=== PATIENT | male | born 1970 | race Caucasian/White ===

== ENCOUNTER 2021-09-11 16:17 | Outpatient (CLI) | payer BC, SELFPAY ==
[2021-09-11 21:18] LABS: Chloride* 101 mmol/L (96-114)
[2021-09-11 21:19] LABS: Albumin* 4.7 g/dL (3.3-5.0); Potassium* 4.7 mmol/L (3.6-5.1); Sodium* 139 mmol/L (135-149)
[2021-09-11 21:21] LABS: Estimated Glomerular Filt Rate 39 ml/min
[2021-09-11 21:22] LABS: Blood Urea Nitrogen* 32 mg/dL (7-30); Carbon Dioxide* 29 mmol/L (20-32); Glucose* 99 mg/dL (60-115); Uric Acid* 8.6 mg/dL (2.2-8.4)
[2021-09-11 21:23] LABS: Calcium* 9.3 mg/dL (8.4-10.6)
[2021-09-11 21:28] LABS: Microalbumin Creatinine Ratio 70 mg/g (0-30); Microalbumin Urine 8 mg/dL
[2021-09-11 21:29] LABS: C Reactive Protein* < 0.5 mg/dL (0.5-1.0)
== END 2021-09-11 16:18 | disposition home or self-care (01) ==
PROVIDERS: PCP Internal Medicine Nephrology; Visit Provider Internal Medicine Nephrology
DX: N18.9 Chronic kidney disease, unspecified (principal)
CPT/HCPCS: 80069; 82043; 82570; 84550; 86140; 87086

== ENCOUNTER 2022-01-11 16:54 | Outpatient (CLI) | payer BC, SELFPAY ==
[2022-01-12 00:44] LABS: Creatinine Urine 99.2 mg/dL
[2022-01-12 00:47] LABS: Microalbumin Creatinine Ratio 90 mg/g (0-30); Microalbumin Urine 9 mg/dL
[2022-01-12 00:51] LABS: Albumin* 4.4 g/dL (3.3-5.0); Chloride* 104 mmol/L (96-114); Potassium* 4.4 mmol/L (3.6-5.1); Sodium* 140 mmol/L (135-149)
[2022-01-12 00:54] LABS: Blood Urea Nitrogen* 23 mg/dL (7-30); Carbon Dioxide* 29 mmol/L (20-32); Cholesterol* 189 mg/dL (90-199); Creatinine* 1.7 mg/dL (0.5-1.5); Estimated Glomerular Filt Rate 48 ml/min
[2022-01-12 00:55] LABS: Calcium* 8.9 mg/dL (8.4-10.6); HDL Cholesterol* 30 mg/dL (>=40); LDL Cholesterol Calculated 67 mg/dL (<100); Phosphorus* 3.9 mg/dL (2.5-4.5); Uric Acid* 8.3 mg/dL (2.2-8.4)
[2022-01-12 00:58] LABS: Glucose* 98 mg/dL (60-115)
[2022-01-12 01:02] LABS: Triglycerides* 459 mg/dL (40-149)
== END 2022-01-11 16:55 | disposition home or self-care (01) ==
PROVIDERS: PCP Emergency Medicine; Visit Provider Internal Medicine Nephrology
DX: E11.9 Type 2 diabetes mellitus without complications (principal); N18.32 Chronic kidney disease, stage 3b; R80.1 Persistent proteinuria, unspecified
CPT/HCPCS: 80061; 80069; 82043; 82570; 84550

== ENCOUNTER 2022-03-21 15:46 | Outpatient (CLI) | payer BC, SELFPAY ==
[2022-03-21 22:14] LABS: PSA Screen* 0.61 ng/mL (0.10-4.00)
[2022-03-24 02:49] LABS: Testosterone, Adult Male 403 ng/dL (300-890)
== END 2022-03-21 15:47 | disposition home or self-care (01) ==
PROVIDERS: PCP Emergency Medicine; Visit Provider Emergency Medicine
DX: E11.9 Type 2 diabetes mellitus without complications (principal); R79.89 Other specified abnormal findings of blood chemistry; N18.30 Chronic kidney disease, stage 3 unspecified; E78.5 Hyperlipidemia, unspecified; Z12.5 Encounter for screening for malignant neoplasm of prostate
CPT/HCPCS: 84153; 84403; 84443

== ENCOUNTER 2022-04-11 15:00 | Outpatient (CLI) | payer BC, SELFPAY | END 2022-04-11 15:01 | disposition home or self-care (01) | PROVIDERS: PCP Emergency Medicine; Visit Provider Internal Medicine Nephrology | DX: E11.9 Type 2 diabetes mellitus without complications (principal); N18.32 Chronic kidney disease, stage 3b | CPT/HCPCS: 82310; 83970 ==

== ENCOUNTER 2022-04-11 15:00 | Outpatient (CLI) | payer BC, SELFPAY | END 2022-04-11 15:01 | disposition home or self-care (01) | LOC: NFLDREF 04-19 09:21 | PROVIDERS: PCP Emergency Medicine; Referring Provider Emergency Medicine; Visit Provider Internal Medicine Nephrology | DX: E11.9 Type 2 diabetes mellitus without complications (principal); N18.32 Chronic kidney disease, stage 3b; R80.1 Persistent proteinuria, unspecified; E78.5 Hyperlipidemia, unspecified | CPT/HCPCS: 80069; 82043; 82570; 84550; 86140 ==

== ENCOUNTER 2022-10-11 15:39 | Outpatient (CLI) | payer BC, SELFPAY ==
--- OUTSIDE RECORDS SUMMARY | 2022-10-13 07:49 | XMS_ITS | Continuity of Care Document ---
Author Name Unknown Organization [facility] Address [address] [address] [place] [address] Phone Care Team Providers Care Cota Name Role Phone Rommel Walton MD Unavailable Unavailable Advance Directives Directive Yes / No Effective Date File Name No Information Encounters Encounter Description Practice Location Reason(s) For Visit Diagnoses Date Provider Providers Copied on Encounter [facility], [address] [address], [place], [place], [id number], [place] tel:[phone] [facility] Procedures No Information Isabelle Carney. [address] [facility], [facility] [address], [place], [place], [id number] , [place]. tel:[phone] Referring Provider: Maylin Mckeon MD R, [address] [place], [address]. tel:[phone] Family History Family Member Type Diagnosis Age At Onset No Information Payers Payer name Insurance type Covered republican ID Authoriza tion(s) No Information Social History Type Description Quantity Date Captured Comments Sex Male Smoking Status No Information Chief Complaint And Reason For Visit No Information Reason For Referral Reason For Referral No Information History Of Present Illness Encounter Date Complaint History Of Prese nt Illness No Information Functional Status Date Functional Assessmen t No Information Instructions Date Instruction Additional Infor mation No Information Assessments Type Assessment Date No Information Patient Care Teams Name Effective Dates (start - stop) Status Members No Information
== END 2022-10-11 15:40 | disposition home or self-care (01) ==
LOC: NFLDREF 10-13 07:48
PROVIDERS: PCP Emergency Medicine; Referring Provider Emergency Medicine; Visit Provider Internal Medicine Nephrology
DX: N18.32 Chronic kidney disease, stage 3b (principal); N02.8 Recurrent and persistent hematuria with other morphologic changes; R80.1 Persistent proteinuria, unspecified; N52.9 Male erectile dysfunction, unspecified; E11.9 Type 2 diabetes mellitus without complications; R79.89 Other specified abnormal findings of blood chemistry; Z12.5 Encounter for screening for malignant neoplasm of prostate
CPT/HCPCS: 80069; 82043; 82570; 84550

== ENCOUNTER 2022-10-24 08:17 | Outpatient (CLI) | payer BC, SELFPAY | END 2022-10-24 08:18 | disposition home or self-care (01) | PROVIDERS: PCP Emergency Medicine; Visit Provider Emergency Medicine | DX: E78.5 Hyperlipidemia, unspecified (principal); R79.89 Other specified abnormal findings of blood chemistry; E11.9 Type 2 diabetes mellitus without complications | CPT/HCPCS: 80061; 84270; 84402; 84403 ==

== ENCOUNTER 2022-11-04 14:50 | Outpatient (CLI) | payer BC, SELFPAY | END 2022-11-04 14:51 | disposition home or self-care (01) | LOC: NFLDREF 14:51 | PROVIDERS: PCP Emergency Medicine; Visit Provider Internal Medicine Nephrology | DX: R79.89 Other specified abnormal findings of blood chemistry (principal); E78.5 Hyperlipidemia, unspecified | CPT/HCPCS: 84443 ==

== ENCOUNTER 2022-11-06 15:32 | Outpatient (CLI) | payer BC, SELFPAY | END 2022-11-06 15:33 | disposition home or self-care (01) | LOC: RAD 15:34 | PROVIDERS: PCP Emergency Medicine; Visit Provider Internal Medicine Nephrology | DX: R00.0 Tachycardia, unspecified (principal) | CPT/HCPCS: 93225; 93226 ==

== ENCOUNTER 2022-11-15 16:54 | Outpatient (CLI) | payer BC, SELFPAY | END 2022-11-15 16:55 | disposition home or self-care (01) | LOC: NFLDREF 11-20 13:26 | PROVIDERS: PCP Emergency Medicine; Referring Provider Emergency Medicine; Visit Provider Emergency Medicine | DX: R79.89 Other specified abnormal findings of blood chemistry (principal) | CPT/HCPCS: 84270; 84402; 84403 ==

== ENCOUNTER 2023-01-07 12:39 | Outpatient (CLI) | payer BC, SELFPAY ==
[2023-01-07 13:55] VITALS: BP 143/69; PULSE 114
--- NOTE | 2023-01-07 17:05 | P.STN_ITS ---
Stress Test Note Date Date of test: 01/07/23 Providers Primary care provider: Tara Anguiano Stress test physician: Roger Pereira Stress Test Note Stress test ordered: Stress Echo Indication for test: Dyspnea Results discussion: Patient is very nice 52-year-old gentleman who presents for the above test after discussion the risks benefits and side effects he would like to proceed pretest EKG shows normal sinus rhythm, with a ventricular rate of 96, and a blood pressure [id number]. Rhythm is sinus, no acute ST wave changes are noted, fol lowing standard Tray protocol patient is exercised for a total time 10 minutes 2 seconds achieved a metabolic open 11.7 Mets, maximum heart rate was 180, is 126% of the maximum. During this test there is no complaints of chest pain shortness of breath, no appreciable changes suggestive of ischemia are noted. Impression: Negative electrographic portion of stress echo Follow up suggested: Await echo images, clinical correlation with these will be needed, patient left this testing facility in excellent condition,
== END 2023-01-07 12:40 | disposition home or self-care (01) ==
LOC: STRESS 12:39
PROVIDERS: PCP Emergency Medicine; Visit Provider Family Medicine
DX: R06.02 Shortness of breath (principal); R42 Dizziness and giddiness
CPT/HCPCS: 93016; 93325; 93351

== ENCOUNTER 2023-04-25 16:00 | Outpatient (CLI) | payer BC, SELFPAY | END 2023-04-25 16:01 | disposition home or self-care (01) | LOC: NFLDREF 04-30 07:35 | PROVIDERS: PCP Emergency Medicine; Referring Provider Emergency Medicine; Visit Provider Internal Medicine Nephrology | DX: E78.5 Hyperlipidemia, unspecified (principal); N18.32 Chronic kidney disease, stage 3b; R80.1 Persistent proteinuria, unspecified; Z12.5 Encounter for screening for malignant neoplasm of prostate | CPT/HCPCS: 80061; 80069; 82043; 82310; 82570; 82728; 83540; 83550; 83970; 84550; 86140; G0103 ==

== ENCOUNTER 2023-10-14 16:20 | Outpatient (CLI) | payer BC, SELFPAY ==
--- OUTSIDE RECORDS SUMMARY | 2023-10-16 07:49 | XMS_ITS | Clinical Summary ---
Author Organization [facility] Address [place], [place] [address] Care Team Providers Care Cloth Spreader Screen Printing Name Role Phone Nick Snell MD Primary Care Provider Allergies No known active allergies Medications Medication Sig Dispensed Refills Start Date End Date Status fexofenadine (HARLEEN) 180 mg tabletIndications: Seasonal allergies Take 1 tablet by mouth once daily with a meal. 90 tablet 3 07/08/2019 Active BD LUER-DWIGHT SYRINGE 1 mL syrgIndications:Lo w testosterone in male DIRECTED. 6 Each 3 02/07/2020 Active blood sugar diagnostic (BLOOD GLUCOSE TEST) stripIndications:C ontrolled type 2 diabetes mellitus without complication, without long-term current use of insulin (HC) As directed. Test 1 times per day. One touch (or for whichever meter patient has). 100 Strip 03/03/2020 Active mometasone (NASONEX) (50 mcg each actuation) nasal sprayIndications:S easonal allergies Inhale 2 Sprays to both nostrils once daily. 3 canister 06/06/2020 Active B-D 3cc Luer-Dwight Syr [id number]/2 3 mL 22 x 1 1/2 syrg USE DIRECTED 07/27/2020 Act jann dapagliflozin (FARXIGA) 10 mg tabletIndications: Controlled type 2 diabetes mellitus without complication, without long-term current use of insulin (HC) Take 1 Tablet (10 mg) by mouth once daily. 90 tablet. 1 02/23/2021 Active zolpidem (AMBIEN) 5 mg tabletIndications: Insomnia, idiopathic Take 1-2 tabs at bedtime as needed for sleep 30 Tablet 02/24/2021 Active atorvastatin (LIPITOR) 40 mg tabletIndications: Dyslipidemia Take 1 Tablet (40 mg) by mouth at bedtime. 90 Tablet 02/23/2021 Active sildenafil citrate (VIAGRA) 100 mg tabletIndications: Other male erectile dysfunction Take 1 Tablet (100 mg) by mouth once daily if needed for Erectile Dysfunction. Take 30min to 4 hours before sexual activity. Max 100mg/24hr. 30 Tablet 5 02/23/2021 Active amLODIPine (NORVASC) 5 mg tabletIndications: Hypertension, unspecified type Take 1 Tablet (5 mg) by mouth once daily. 90 Tablet 02/23/2021 Active lisinopriL (PRINIVIL; ZESTRIL) 20 mg tabletIndications: Type 2 diabetes mellitus without complication, without long-term current use of insulin (HC) Take 1 Tablet (20 mg) by mouth once daily. 90 tablet. 02/23/2021 Active testosterone cypionate (DEPO-TESTOSTERONE ) 200 mg/mL injectionIndicatio ns:Low testosterone in male INJECT 1 ML INTRAMUSCULARLY EVERY TWO WEEKS 6 mL 1 02/24/2021 Active needle, disp, 18 g ( Regular Bevel [place]) 18 gauge x 1 1/2 ndleIndications:Lo w testosterone in male As directed. 100 Each 2 03/05/2021 Active needle, disp, 22 g ([place] Disp [place] 21Yx0-6/2) 22 gauge x 1 1/2 ndleIndications:Lo w testosterone in male As directed. 100 Each 2 03/05/2021 Active Syringe, Disposable, 1 mL syrgIndications:Lo w testosterone in male As directed. 100 Each 03/05/2021 Active Active Problems Problem Noted Date Diagnosed Date Low testosterone in male 02/25/2020 IgA nephropathy 08/21/2018 Overview: 08/2018 done by kidney biopsy CKD (chronic kidney disease) stage 3, GFR 30-59 ml/min 06/15/2018 Controlled type 2 diabetes m ellitus without complication, without long-term current use of insulin 06/19/2012 Seasonal allergies 05/07/2010 Transient disorder of initiating or maintaining sleep 05/07/2010 Dyslipidemia 05/07/2010 Overview: Low HDL, high trigs (03/15 HDL 33; trig 239) Screen for colon cancer, due 2025 Overview: Rpt in 2025 Diverticulosis in the sigmoid colon. 2 mm hyperplastic polyp in the rectum Two 2 to 4 mm tubular adenoma in the transverse colon - Hemorrhoids. Resolved Problems Problem Noted Date Diagnosed Date Resolved Date Type II or unspecified type diabetes mellitus without mention of complication, uncontrolled 05/16/2011 06/19/2012 Immunizations Name Administration Dates Next Due COVID-19 vaccine (Lucky Ant NTThe Extraordinaries 30mcg/0.3mL) PF, MDV 05/12/2020,04/21/2020 Hepatitis A (Adult) 06/12/2018 Hepatitis B (Adult) 06/19/2012 Influenza A (H1N1), Inactivated 01/28/2009 Influenza, IIV3 (Age >=3 years) 12/29/2012,12/10 Influenza, IIV4 11/11/2020,,12/14/2018,2016,12/09/2014 Influenza, RIV3 (Age =>18 Years) 01/07/2014 Pneumococcal conj 13-Valent (Prevnar 13) 11/11/2020 Td (Age >=7 Years) 07/15/2002 Tdap 06/19/2012 Zoster (Shingrix-RZV, recombinant) 01/25/2021, Family History Medical History Relation Name Comments Anxiety disorder Daughter 1 Joanna Depression Daughter 1 Joanna Good Health Daughter 1 Joanna Asthma Daughter 2 Fitz viral induced; allergies Diabetes Father Hypertension Father Stomach cancer Father Heart Disease Maternal Grandfather Arthritis Maternal Grandmother Diabetes Maternal Grandmother Other Maternal Grandmother alzheim er's Diabetes Mother Heart Disease Paternal Grandfather Blood Disease Paternal Grandmother lympho ma Good Health Sister 1 Tracy Other Sister 1 Tracy migraines Good Health Sister 2 Lynsey Relation Name Status Comments Daughter 1 Joanna Alive Daughter 2 Fitz Alive Father Maternal Grandfather (Age 79) he art issues Maternal Grandmother Mother Alive Paternal Grandfather (Age early 70's) heart failure, ESRD Paternal Grandmother (Age 65) ly mphoma Sister 1 Tracy Alive Sister 2 Lynsey Alive Social History Tobacco Use Types Packs/Day Years Used Date Smoking Tobacco: Never Smokeless Tobacco: Never Tobacco Cessation:Counseling Given: Yes Alcohol Use Standard Drinks/Week Comments Yes 0 (1 standard drink = 0.6 oz pur e alcohol) rare PHQ-2 Answer Date Recorded PHQ-2 TOTAL SCORE 0 01/30/2021 Social Connections Answer Date Recorded Frequency of Communication with Friends and Fami ly Not on file 01/31/2021 Financial Resource Strain Answer Date R ecorded Difficulty of Paying Living Expenses Not on file 01/31/2021 Difficulty of Paying Living Expenses Not on file 01/31/2021 Sex and Gender Information Value Date Recorded Sex Assigned at Not on file Gender Identity Not on file Sexual Orientation Not on file Obstetrics History Last Filed Vital Signs Vital Sign Reading Time Taken Comments Blood Pressure 124/70 01/30/2021 7:13 AM FELLING MACHINE OPERATOR Pulse 84 01/30/2021 7:13 AM FELLING MACHINE OPERATOR Temperature 36.3 ??C (97.3 ??F) 09/22/2020 7:13 AM CD T Respiratory Rate 16 09/22/2020 8:45 AM CDT Oxygen Saturation 100% 09/22/2020 9:00 AM CDT Inhaled Oxygen Concentration - - Weight 84.8 kg (187 lb) 01/30/2021 7:13 AM FELLING MACHINE OPERATOR Height 182.9 cm (6') 09/22/2020 7:13 AM CDT Body Mass Index 25.36 09/22/2020 7:13 AM CDT Plan of Treatment Health Maintenance Due Date Last Done Comments HIV for age 15-65 1984 Hepatitis C screening for ag e 18-79 07/31/1987 Pneumococcal series for age 6-64 (2 of 2 - PPSV23 or PCV20) 01/06/2021 11/11/2020 BMI (ht and wt on same day) for age 18+ 03/03/2021 03/03/2020, 06/12/2018, 05/30/2017, Additional history exists Depression screening for age 12+ 01/30/2022 01/30/2021, 10/04/2019, 06/12/2018, Additional history exists Tetanus booster 06/19/2022 06/19/2012, 07/15/2002 COVID-19 vaccine series ( season) 2023 12/13/2021, 11/18/2020, 05/12/2020, Additional history exists Influenza for age 50-64 10/12/2023 11/12/19, 12/12/2019, 12/14/2018, Additional history exists Lipids for age 45-75 07/31/2025 07/31/2020, 07/19/2019, 06/12/2018, Additional history exists Colonoscopy through age 75 09/22/2025 09/22/2020 Tdap Completed 06/19/2012 Zoster (shingles) series for age 50+ Completed 01/25/2021, 11/11/2020 Procedures Procedure Name Priority Date/Time Associated Diagnosis Comments COLONOSCOPY 09/22/2020 7:57 AM CDT LIPID PANEL W REFLEX MEASURED LDL Routine 07/31/2020 3:34 PM CDT Dyslipidemia from Last 3 Months or Most Recently Relevant to Health Maintenance Results * COLONOSCOPY (09/22/2020 7:57 AM CDT) 09/22/2020 7:57 AM CDT Narrative Transcriptions Zofia Mae MD - 09/22/2020 8:28 AM CDT Endoscopy Patient Name: Trevor Holman Procedure Date: 09/22/2020 Gender: Male Date of : 1970 Admit Type: Ambulatory Procedure: Colonoscopy Proceduralist: Zofia Mae MD Referring MD: Nick Snell Indications/Pre-Op Diagnosis: Screening for malignant neoplasm in thecolon Medications: Monitored Anesthesia Care Procedure Description: The patient had risks, benefits and alternatives explained to andgave informed consent. The patient had a stable cardiopulmonary status and judged an adequate candidate for conscious sedation. The endoscope was passed through the anus and advanced to the cecum, identified by appendiceal orifice and ileocecal valve. Thecolonoscopy was performed without difficulty. The patient tolerated the procedure well. The quality of the bowel preparation was adequate and 10percent obscured. The ileocecal valve, appendiceal orifice, and rectum were photographed. Complications: No immediate complications. Estimated Blood Loss & Specimen: Estimated blood loss: none. Specimen collected: Yes and sent to Laboratory Findings: Scattered medium-mouthed diverticula were found in the sigmoidcolon. A 2 mm polyp was found in the rectum. The polyp wassemi-pedunculated. The polyp was removed with a hot snare. Resection and retrieval were complete. Two semi-sessile polyps were found in the transverse colon. Thepolyps were 2 to 4 mm in size. These polyps were removed with a hot snare. Resection and retrieval were complete. Hemorrhoids were found. The exam was otherwise without abnormality. Impressions/Post-Op Diagnosis: - Diverticulosis in the sigmoid colon. - One 2 mm polyp in the rectum, removed with a hot snare. Resectedand retrieved. - Two 2 to 4 mm polyps in the transverse colon, removed with a hot snare. Resected and retrieved. - Hemorrhoids. - The examination was otherwise normal. Recommendation: - Follow up colonoscopy recommendations will depend on the pathologyof the polyp. - A letter will be sent to the patient with pathology results andfuture screening colonoscopy recommendations. - Resume regular diet daily. - Use citrus or orange sugared Metamucil one tablespoon PO daily indefinitely. Zofia Mae MD 09/22/2020 8:28:36 AM This report has been signed electronically. Note Initiated On: 09/22/2020 7:57 AM Total Procedure Duration Time 0 hours 13 minutes 50 seconds Scope Withdrawal Time 0 hours 9 minutes 28 seconds Zofia Mae MD PROCEDURE ORD * (ABNORMAL) LIPID PANEL W REFLEX MEASURED LDL (07/31/2020 3:34 PM CDT) CHOLESTEROL,TOTAL 189 100 - 199 mg/dL 08/01/2020 2:18 PM CDT [facility] TRIGLYCERIDES 384(H) <150 mg/dL 08/01/2020 2:18 PM CDT [facility] HDL CHOLESTEROL 33(L) >40 mg/dL 2:18 PM CDT [facility] NON-HDL CHOLESTEROL 156(H) <145 mg/dl 08/01/2020 2:18 PM CDT [facility] CHOL/HDL RATIO 5.73(H) <4.50 08/01/2020 2:18 PM CDT [facility] LDL CHOLESTEROL 79 <=130 mg/dL 08/01/2020 2:18 PM CDT [facility] VLDL CHOLESTEROL 77 mg/dL 08/02/19 2:18 PM CDT [facility] PROVIDER ORDERED STATUS RANDOM 08/01/2020 2:18 PM CDT [facility] Blood BLOOD SPECIMEN / Unknown Venipuncture / Unknown 07/31/2020 3:34 PM CDT 07/31/2020 3:34 PM CDT Nick Snell MD CHEMISTRY [facility] [address] [place] [address], [facility] [address] [place] [address] from Last 3 Months or Most Recently Relevant to Health Maintenance Advance Directives * Full Code (Latest Code Status on File) Date Activated Date Inactivated Comments 09/22/2020 7:20 AM 09/22/2020 11:11 AM Question Answer Comments Code Status Discussion: Not Discussed Care Teams Cloth Spreader Screen Printing Relationship Specialty [place] [address] [place] [address] PCP - General Family Practice 07/31/20 [facility] [address] Ophthalmology 02/13/21
--- OUTSIDE RECORDS SUMMARY | 2023-10-16 07:49 | XMS_ITS ---
Author Organization [facility] Address [address] [place] [address] Care Team Providers Care Manufacturing Automation Engineer Name Role Phone Unavailable Unavailable Unavailable Surgery Details Not on file Complications Check Surgery Details section. Procedure Estimated Blood Loss Check Surgery Details section. Procedure Findings Check Surgery Details section. Procedure Specimens Taken Check Surgery Details section.
--- OUTSIDE RECORDS SUMMARY | 2023-10-16 07:49 | XMS_ITS | Clinical Summary ---
Author Organization [facility] Address [facility] [place] [address] Care Team Providers Care Tire Curer Name Role Phone [facility]- Primary Care Provider Allergies No known active allergies Social History Tobacco Use Types Packs/Day Years Used Date Smoking Tobacco: Never Assessed Adolescent Education Answer Date Record ed Getting School Help Needed Not on file 11/05 Sex and Gender Information Value Date Recorded Sex Assigned at Not on file Gender Identity Not on file Sexual Orientation Not on file Last Filed Vital Signs Vital Sign Reading Time Taken Comments Blood Pressure 130/79 10/30/2022 6:47 PM CDT Pulse 95 10/30/2022 6:47 PM CDT Temperature 37.1 ??C (98.8 ??F) 10/30/2022 4:08 PM CD T Respiratory Rate 26 10/30/2022 6:47 PM CDT Oxygen Saturation 96% 10/30/2022 6:47 PM CDT Inhaled Oxygen Concentration - - Weight - - Height - - Body Mass Index - - Plan of Treatment Health Maintenance Due Date Last Done Comments ADVANCE CARE PLANNING 1970 ANNUAL REVIEW OF HM ORDERS 1969 CT COLONOGRAPHY 1970 FIT 1970 FLEX SIG 1970 YEARLY PREVENTIVE VISIT 1970 sDNA (Cologuard) 1970 COLONOSCOPY 07/31/1979 COLORECTAL CANCER SCREENING 07/31/1979 HIV SCREENING 1984 HEPATITIS C SCREENING 07/31/1987 LIPID 2009 HEPATITIS B IMMUNIZATION (2 of 3 - 19+ 3-dose series) 07/17/2012 06/19/2012 PHQ-2 (once per calendar year) 2023 COVID-19 Vaccine ( season) 2023 12/13/2021, 11/18/2020, 05/12/2020, Additional history exists INFLUENZA VACCINE (#1) 2023 , 12/13/2021, 11/11/2020, Additional history exists GLUCOSE 10/30/2025 10/30/2022, 01/10, 01/21/2022 DTAP/TDAP/TD IMMUNIZATION (3 - Td or Tdap) 12/13/2031 12/12/2021, 06/19/2012, 07/15/2002 Pneumococcal Vaccine: Pediatrics (0 to 5 Years) and At-Risk Patients (6 to 64 Years) Aged Out 11/11/2020 No longer eligible based on patient's age to complete this topic ZOSTER IMMUNIZATION Completed 01/25/2021, HPV IMMUNIZATION Aged Out No longer e ligible based on patient's age to complete this topic MENINGITIS IMMUNIZATION Aged Out No l onger eligible based on patient's age to complete this topic RSV MONOCLONAL ANTIBODY Aged Out No l onger eligible based on patient's age to complete this topic Procedures Procedure Name Priority Date/Time Associated Diagnosis Comments BASIC METABOLIC PANEL STAT 10/30/2022 4:11 PM CDT from Last 3 Months or Most Recently Relevant to Health Maintenance Results * (ABNORMAL) Basic metabolic panel (BMP) (10/30/2022 4:11 PM CDT) Sodium 142 136 - 145 mmol/L 10/30/2022 4:42 PM CDT [facility] Potassium 4.1 3.4 - 5.3 mmol/L 10/30/2022 4:42 PM CDT [facility] Chloride 101 98 - 107 mmol/L 10/30/2022 4:42 PM CDT [facility] Carbon Dioxide (CO2) 27 22 - 29 mmol/L 10/30/2022 4:42 PM CDT [facility] Anion Gap 14 7 - 15 mmol/L 10/30/2022 4:42 PM CDT [facility] Urea Nitrogen 20.5(H) 6.0 - 20.0 mg/dL 10/30/2022 4:42 PM CDT [facility] Creatinine 1.72(H) 0.67 - 1.17 mg/dL 10/30/2022 4:42 PM CDT [facility] Calcium 9.0 8.6 - 10.0 mg/dL 10/30/2022 4:42 PM CDT [facility] Glucose 126(H) 70 - 99 mg/dL 10/30/2022 4:42 PM CDT [facility] GFR Estimate 47(L) >60 mL/min/1.7 3m2 10/30/2022 4:42 PM CDT [facility] Blood BLOOD SPECIMEN / Unknown Venipuncture / Unknown 10/30/2022 4:11 PM CDT 10/30/2022 4:19 PM CDT Efren Suarez MD LAB - BLOOD ORDERABL ES [facility] [address] [facility] (1st floor, no room number) [place] [address], [facility] [phone] from Last 3 Months or Most Recently Relevant to Health Maintenance Care Teams Tire Curer Relationship Specialty Start Date End Date [facility]- [address] [place] [address] PCP - General 01/21/22
--- OUTSIDE RECORDS SUMMARY | 2023-10-16 07:49 | XMS_ITS | Referral Summary ---
Author Organization [facility] Address [address] [place] [address] Care Team Providers Care Youth Ministry Director Name Role Phone Unavailable Primary Care Provider Unavailabl e Source Comments Patient records contain information from all sites at [facility]. For routine questions regarding patient records, call [phone] during business hours, M-F 8:00 AM - 5:00 PM Central Time. Record requests for emergency care only can be directed to [phone] at any time.[facility] Medications Medication Sig Dispensed Refills Start Date End Date Status amLODIPine (NORVASC) 5 mg tablet Take 5 mg by mouth. 02/23/2021 Activ e atorvastatin (LIPITOR) 40 mg tablet Take 40 mg by mouth. 02/23/2021 Acti ve dapagliflozin (FARXIGA) 10 mg tablet Take 10 mg by mouth. 02/23/2021 Acti ve fexofenadine (HARLEEN) 180 mg tablet Take 180 mg by mouth. 07/08/2019 Act jann lisinopriL (PRINIVIL,ZESTRI L) 20 mg tablet 07/19/2021 Active sildenafiL (VIAGRA) 100 mg tablet Take 100 mg by mouth. 02/23/2021 Act jann testosterone cypionate (DEPO-TESTOSTERO NE) 200 mg/mL injection INJECT 1 ML INTRAMUSCULARLY EVERY TWO WEEKS 02/24/2021 Active metoprolol succinate (TOPROL-XL) 50 mg 24 hr tablet Take 1 tablet (50 mg total) by mouth daily. Do not crush or chew. 90 tablet 3 11/04/2022 11/04/2023 Active Active Problems Problem Noted Date Diagnosed Date Weakness General 01/22/2022 Tachycardia 01/22/2022 Chronic Kidney Disease (CKD) , Stage 3a Glomerular Filtration Rate (GFR) 45 To 59 03/26/2021 Glomerulonephritis Immunoglobulin A (IgA Nephrop athy) 03/26/2021 Diabetes Mellitus Type 2 03/26/2021 Hyperlipidemia Mixed 03/26/2021 Hypertensive Chronic Kidney Disease With Stage 1 Through Stage 4 Chronic Kidney Disease, Or Unspecified Chronic Kidney Disease 03/26/2021 Social History Tobacco Use Types Packs/Day Years Used Date Smoking Tobacco: Never Assessed Nutrition Answer Date Recorded Nutrition: EVOO Fat Source Unknown 03/02 Nutrition: Servings of Fruits/Vegetables per Day Not on file 03/02/2021 Dental Answer Date Recorded Dental: Regular Dentist Unknown 03/02/19 Sex and Gender Information Value Date Recorded Sex Assigned at Not on file Gender Identity Not on file Sexual Orientation Not on file Last Filed Vital Signs Vital Sign Reading Time Taken Comments Blood Pressure 136/84 04/28/2023 4:45 PM CDT Pulse 102 04/28/2023 4:45 PM CDT Temperature - - Respiratory Rate - - Oxygen Saturation - - Inhaled Oxygen Concentration - - Weight 83.5 kg (184 lb 1.4 oz) 04/28/2023 4:45 P M CDT Height 184 cm (6' 0.44) 04/28/2023 4:45 PM CDT Body Mass Index 24.66 04/28/2023 4:45 PM CDT Plan of Treatment Not on file
--- OUTSIDE RECORDS SUMMARY | 2023-10-16 07:49 | XMS_ITS | Clinical Summary ---
Author Organization [facility] Address [address] [place] [address] Care Team Providers Care Pie Cutter Name Role Phone Unavailable Primary Care Provider Unavailabl e Source Comments Patient records contain information from all sites at [facility]. For routine questions regarding patient records, call [phone] during business hours, M-F 8:00 AM - 5:00 PM Central Time. Record requests for emergency care only can be directed to [phone] at any time.[facility] Medications Medication Sig Dispensed Refills Start [...] 04/28/2023 4:45 PM CDT Plan of Treatment Health Maintenance Due Date Last Done Comments CT Colonography 1970 Cologuard 1970 Diabetic Office Visit with F oot Exam 1969 Dilated Eye Exam 1970 FIT 1970 HIV Screening 1970 Hepatitis C Screening 1970 Urine Albumin 1970 Hepatitis B Vaccines (2 of 3 - 19+ 3-dose series) 07/17/2012 06/19/2012 Hemoglobin A1C 07/25/2021 01/24/2021, 06/2 02/2020, 02/21/2020, Additional history exists Depression Screening (Annual PHQ-2) 02/10/2023 COVID-19 Vaccine (2022-2 4 season) 2023 12/13/2021, 11/18/2020, 05/12/2020, Additional history exists Creatinine Level (Kidney Fun ction Test) 10/31/2023 10/30/2022, 01/21/2022, 01/24/2021, Additional history exists Potassium Level 10/31/2023 10/30/2022, 01/10, 01/24/2021, Additional history exists Sodium Level 10/31/2023 10/30/2022, 01/10, 01/24/2021, Additional history exists Influenza Vaccine (#1) 2023 , 12/13/2021, 11/11/2020, Additional history exists Office Visit for Blood Press ure Check / Re-check 04/27/2024 04/28/2023 Lipid (Cholesterol) Screening 07/31/2025, 07/19/2019, 06/12/2018 Colonoscopy 09/22/2030 09/22/2020 Colorectal Cancer Screening 09/22/2030 DTaP,Tdap,and Td Vaccines (3 - Td or Tdap) 12/13/2031 12/12/2021, 06/19/2012, 07/15/2002 Zoster Vaccines Completed 01/25/2021, 11/11/2020 Pneumococcal vaccine (0-64 years) Completed 024, 11/11/2020
--- OUTSIDE RECORDS SUMMARY | 2023-10-16 07:49 | XMS_ITS | Referral Summary ---
Author Organization [place] Address [address] [facility] [place] [address] Care Team Providers Care Heating Engineer Name Role Phone [facility]- Primary Care Provider Allergies No known active [...] Mass Index - - Plan of Treatment Not on file Procedures Procedure Name Priority Date/Time Associated Diagnosis Comments BASIC METABOLIC PANEL STAT 10/30/2022 4:11 PM CDT from Last 3 Months or Most Recently Relevant to Health Maintenance Results * (ABNORMAL) Basic metabolic panel (BMP) (10/30/2022 4:11 PM CDT) Sodium 142 136 - 145 mmol/L 10/30/2022 4:42 PM CDT [facility] Potassium 4.1 3.4 - 5.3 mmol/L 10/30/2022 4:42 PM CDT LABORATORY Chloride 101 98 - 107 mmol/L [...] Suarez MD LAB - BLOOD ORDERABL ES [facility] Acute Care Lab [address] [facility] Lab (1st floor, no room number) [place] [address], [facility] [phone] from Last 3 Months or Most Recently Relevant to Health Maintenance Care Teams Heating Engineer Relationship Specialty Start Date End Date [facility]- [address] [place], [place] [id number] [facility] - General 01/21/22
== END 2023-10-14 16:21 | disposition home or self-care (01) ==
LOC: NFLDREF 10-16 07:47
PROVIDERS: PCP Emergency Medicine; Referring Provider Emergency Medicine; Visit Provider Internal Medicine Nephrology
DX: E11.22 Type 2 diabetes mellitus with diabetic chronic kidney disease (principal); I12.9 Hypertensive chronic kidney disease with stage 1 through stage 4 chronic kidney disease, or unspecified chronic kidney disease; N18.32 Chronic kidney disease, stage 3b
CPT/HCPCS: 80069; 82043; 82570; 83970; 84450; 84460; 84550; 86140; 87086

== ENCOUNTER 2023-10-21 15:30 | Outpatient (CLI) | payer BC, SELFPAY ==
--- OUTSIDE RECORDS SUMMARY | 2023-10-25 18:05 | XMS_ITS | Clinical Summary ---
Author Organization [facility] Address [address] [place] [address] Care Team Providers Care Head Of Talent Management Name Role Phone Unavailable Primary Care Provider Unavailabl e Source Comments Patient records contain information from all sites at [facility]. For routine questions regarding patient records, call [phone] during business hours, M-F 8:00 AM - 5:00 PM Central Time. Record requests for emergency care only can be directed to [phone] at any time.[facility] Medications Medication Sig Dispensed Refills Start Date [...] Disease, Or Unspecified Chronic Kidney Disease 03/26/2021 Encounters Date Type Department Care Team Description 10/21/2023 3:00 PM CDT External Outreach Division of Nephrology and Hypertension in [place], [place] [address] [place] [address] Ernesto Guillermo Jr., D.O. Chronic Kidney Disease (CKD), Stage 3a Glomerular Filtration Rate (GFR) 45 To 59 (HCC) (Primary Dx); Glomerulonephritis Immunoglobulin A (IgA Nephropathy); Hypertensive Chronic Kidney Disease With Stage 1 Through Stage 4 Chronic Kidney Disease, Or Unspecified Chronic Kidney Disease; Diabetes Mellitus Type 2 (HCC); Hyperlipidemia Mixed from Last 3 Months Social History Tobacco Use Types Packs/Day Years [...] Sign Reading Time Taken Comments Blood Pressure 118/76 10/21/2023 3:05 PM CDT Pulse 101 10/21/2023 3:05 PM CDT Temperature - - Respiratory Rate - - Oxygen Saturation - - Inhaled Oxygen Concentration - - Weight 83.9 kg (184 lb 15.5 oz) 10/21/2023 3:05 PM CDT Height 183 cm (6' 0.05) 10/21/2023 3:05 PM CDT Body Mass Index 25.05 10/21/2023 3:05 PM CDT Plan of Treatment Health Maintenance Due Date Last Done Comments CT Colonography 1969 Cologuard 1969 Diabetic Office Visit with F oot Exam 1969 Dilated Eye Exam 1969 FIT 1969 HIV Screening 1969 Hepatitis C Screening 1969 Urine Albumin 1969 Hepatitis B Vaccines (2 of 3 - 19+ 3-dose series) 07/17/2012 06/19/2012 Hemoglobin A1C 07/25/2021 01/24/2021, 07/12, 02/21/2020, Additional history exists Depression Screening (Annual PHQ-2) 02/10/2023 COVID-19 Vaccine (5 - 2022-2 4 season) 2023 12/13/2021, 11/18/2020, 05/12/2020, Additional history exists Creatinine Level (Kidney Fun ction Test) 10/31/2023 10/30/2022, 01/21/2022, 01/24/2021, Additional history exists Potassium Level 10/31/2023 10/30/2022, 01/10, 01/24/2021, Additional history exists Sodium Level 10/31/2023 10/30/2022, 01/10, 01/24/2021, Additional history exists Influenza Vaccine (#1) 2023 , 12/13/2021, 11/11/2020, Additional history exists Office Visit for Blood Press ure Check / Re-check 10/20/2024 10/21/2023 Lipid (Cholesterol) Screening 07/31/2025, 07/19/2019, 06/12/2018 Colonoscopy 09/22/2030 09/22/2020 Colorectal Cancer Screening 09/22/2030 DTaP,Tdap,and Td Vaccines (3 - Td or Tdap) 12/13/2031 12/12/2021, 06/19/2012, 07/15/2002 Zoster Vaccines Completed 01/25/2021, 11/11/2020 Pneumococcal vaccine (0-64 years) Completed 024, 11/11/2020
--- OUTSIDE RECORDS SUMMARY | 2023-10-25 18:05 | XMS_ITS | Clinical Summary ---
Author Organization [facility] Address [place], [place] [address] Care Team Providers Care Drum Printer Name Role Phone Nick Snell MD Primary [...] canister 06/06/2020 Active B-D 3cc Luer-Dwight Syr 17Tt8-4/2 3 mL 22 x 1 1/2 syrg [...] needle, disp, 18 g ( Regular Bevel [place]) 18 gauge x 1 1/2 ndleIndications:Lo w testosterone in male As directed. 100 Each 2 03/05/2021 Active needle, disp, 22 g ([place] Disp [place] 94Qj2-8/2) 22 gauge x 1 1/2 ndleIndications:Lo w testosterone in male As directed. 100 Each 2 03/05/2021 Active Syringe, Disposable, 1 mL syrgIndications:Lo w testosterone in male As directed. 100 Each 03/05/2021 Active Active Problems Problem Noted Date Diagnosed Date Low testosterone in male 02/25/2020 IgA nephropathy 08/21/2018 Overview (08/21/2018): 08/2018 done by kidney biopsy CKD (chronic kidney disease) stage 3, GFR 30-59 ml/min 06/15/2018 Controlled type 2 diabetes m ellitus without complication, without long-term current use of insulin 06/19/2012 Seasonal allergies 05/07/2010 Transient disorder of initiating or maintaining sleep 05/07/2010 Dyslipidemia 05/07/2010 Overview (05/07/2010): Low HDL, high trigs (03/15 HDL 33; trig 239) Screen for colon cancer, due 2025 Overview (10/05/2020): Rpt in 2025 Diverticulosis in the sigmoid colon. 2 mm hyperplastic polyp in the rectum Two 2 to 4 mm tubular adenoma in the transverse colon - Hemorrhoids. Resolved Problems Problem Noted Date Diagnosed Date Resolved Date Type II or unspecified type diabetes mellitus without mention of complication, uncontrolled 05/16/2011 06/19/2012 Immunizations Name Administration Dates Next Due COVID-19 vaccine ([employer] NTOrangeSlyce 30mcg/0.3mL) PF, MDV 05/12/2020,04/21/2020 Hepatitis A (Adult) [...] Comments Blood Pressure 124/70 01/30/2021 7:13 AM CAPITAL EQUIPMENT SPECIALIST Pulse 84 01/30/2021 7:13 AM CAPITAL EQUIPMENT SPECIALIST Temperature 36.3 ??C (97.3 ??F) 09/22/2020 7:13 AM CD T Respiratory Rate 16 09/22/2020 8:45 AM CDT Oxygen Saturation 100% 09/22/2020 9:00 AM CDT Inhaled Oxygen Concentration - - Weight 84.8 kg (187 lb) 01/30/2021 7:13 AM CAPITAL EQUIPMENT SPECIALIST Height 182.9 cm (6') 09/22/2020 7:13 AM [...] - 199 mg/dL 08/01/2020 2:18 PM CDT [facility] TRIGLYCERIDES 384(H) <150 mg/dL 08/01/2020 2:18 PM CDT [facility] HDL CHOLESTEROL 33(L) >40 mg/dL 2:18 PM CDT [facility] NON-HDL CHOLESTEROL 156(H) <145 mg/dl 08/01/2020 2:18 PM CDT [facility] CHOL/HDL RATIO 5.73(H) <4.50 08/01/2020 2:18 PM CDT [facility] LDL CHOLESTEROL 79 <=130 mg/dL 08/01/2020 2:18 PM CDT [facility] VLDL CHOLESTEROL 77 mg/dL 08/02/19 2:18 PM CDT [facility] PROVIDER ORDERED STATUS RANDOM 08/01/2020 2:18 PM CDT [facility] Blood BLOOD SPECIMEN / Unknown Venipuncture / Unknown 07/31/2020 3:34 PM CDT 07/31/2020 3:34 PM CDT Nick Snell MD CHEMISTRY [facility] [address] [place] [address], [facility] [address] [place] [address] from Last 3 Months or Most Recently Relevant to Health Maintenance Advance Directives * Full Code (Latest Code Status on File) Date Activated Date Inactivated Comments 09/22/2020 7:20 AM 09/22/2020 11:11 AM Question Answer Comments Code Status Discussion: Not Discussed Care Teams Drum Printer Relationship Specialty [place] [address] [place] [address] PCP - General Family Practice 07/31/20 [place] [address] Ophthalmology 02/13/21
--- OUTSIDE RECORDS SUMMARY | 2023-10-25 18:05 | XMS_ITS | Clinical Summary ---
Author Organization [place] Address [facility] [place] [address] Care Team Providers Care Body Artist Name Role Phone [facility]- Primary Care Provider Allergies No known [...] LAB - BLOOD ORDERABL ES [facility] Acute Care Lab [address] [facility] Lab (1st floor, no room number) [place] [address], [facility] [phone] from Last 3 Months or Most Recently Relevant to Health Maintenance Care Teams Body Artist Relationship Specialty Start Date End Date [facility]- [address] [place] [address] PCP - General 01/21/22
--- OUTSIDE RECORDS SUMMARY | 2023-10-25 18:05 | XMS_ITS ---
Author Organization [facility] [place] Address [address] [place] [address] Care Team Providers Care Manager Military Name Role Phone Unavailable Unavailable Unavailable Surgery Details Not on file Complications Check Surgery Details section. Procedure Estimated Blood Loss Check Surgery Details section. Procedure Findings Check Surgery Details section. Procedure Specimens Taken Check Surgery Details section.
--- OUTSIDE RECORDS SUMMARY | 2023-10-25 18:05 | XMS_ITS | Referral Summary ---
Author Organization [facility] Address [address] [place] [address] Care Team Providers Care Lamps Tester And Inspector Name Role Phone Unavailable Primary Care Provider Unavailabl e Source Comments Patient records contain information from all sites at [facility]. For routine questions regarding patient records, call [phone] during business hours, M-F 8:00 AM - 5:00 PM Central Time. Record requests for emergency care only can be directed to [phone] at any time.[facility] Encounters Date Type Department Care Team Description 10/21/2023 3:00 PM CDT External Outreach Division of Nephrology and Hypertension in [place], [place] [address] [place] [address] Ernesto Guillermo Jr., D.O. Chronic Kidney Disease (CKD), Stage 3a Glomerular Filtration Rate (GFR) 45 To 59 (HCC) (Primary Dx); Glomerulonephritis Immunoglobulin A (IgA Nephropathy); Hypertensive Chronic Kidney Disease With Stage 1 Through Stage 4 Chronic Kidney Disease, Or Unspecified Chronic Kidney Disease; Diabetes Mellitus Type 2 (HCC); Hyperlipidemia Mixed from Last 3 Months Medications Medication Sig Dispensed Refills Start Date [...] 10/21/2023 3:05 PM CDT Plan of Treatment Not on file
--- OUTSIDE RECORDS SUMMARY | 2023-10-25 18:05 | XMS_ITS | Encounter Summary ---
Author Organization [facility] Address [address] [place] [address] Care Team Providers Care Repairer Art Objects Name Role Phone Unavailable Primary Care Provider Unavailabl e Reason for Visit * Appointment Request (Routine) - Closed Specialty Diagnoses / Procedures Referred By Leyda quinn Referred To Contact Nephrology and Hypertension Referral ID Status Reason Start Date Expiration Date Visits Re quested Visits Authorized [id number] Closed 09/19/2023 09/18/2024 1 1 Encounter Details Date Type Department Care Team (Latest Contact Info) Description 10/21/2023 3:00 PM CDT External Outreach Division of Nephrology and Hypertension in [place], [place] [address] [place] [address] Ernesto Guillermo Jr., D.O. [address] [place] [phone] Chronic Kidney Disease (CKD), Stage 3a Glomerular Filtration Rate (GFR) 45 To 59 (HCC) (Primary Dx); Glomerulonephritis Immunoglobulin A (IgA Nephropathy); Hypertensive Chronic Kidney Disease With Stage 1 Through Stage 4 Chronic Kidney Disease, Or Unspecified Chronic Kidney Disease; Diabetes Mellitus Type 2 (HCC); Hyperlipidemia Mixed Social History Tobacco Use Types Packs/Day Years [...] on file Sexual Orientation Not on file documented as of this encounter Last Filed Vital Signs Vital Sign Reading [...] Mass Index 25.05 10/21/2023 3:05 PM CDT documented in this encounter Progress Notes * Ernesto Guillermo Jr., D.O. - 10/21/2023 3:00 PM CDT Referring Provider: No primary care provider on file. SUBJECTIVE REASON FOR VISIT [facility] Follow-up regards glomerular nephritis, IgA, biopsy-proven, and CKD HISTORY OF PRESENT ILLNESS Mr. King Holman is a 53 y.o. male who presents with a history of diabetes mellitus, which is well controlled, superimposed on a background of IgA glomerular nephritis. He has had a troubling summer, with quite a bit of stress in his life primarily surrounding some family issues. His sleep is poor. He is also noticing some issues with his urine flow. He is up at least 3 times per night and notes a dramatic slowing of his stream. He has not had any dysuria urgency but at times feels his bladder is very full. I note he had a PSA performed in April which was 0.67. We will redo this, as he is currently taking testosterone supplements. Blood pressures been excellent he has had no orthostatic issues, blood pressures have been in the 1teens to 120s systolic. He has had no hypoglycemic events no neuropathic or ocular changes related to his diabetes mellitus. Regarding his IgA, he has had no hematuria no rash no abdominal discomfort and no flank discomfort. We reviewed his chemistries which are dramatically stable. His creatinine is 1.7 mg/dL, glycosylated hemoglobin level at 6.4%, and appreciate his microalbumin to creatinine ratio is stable at 120 milligrams/gram, with some hematuria. No past medical history on file. Current Outpatient Medications: amLODIPine (NORVASC) 5 mg tablet, Take 5 mg by mouth., Disp: , Rfl: atorvastatin (LIPITOR) 40 mg tablet, Take 40 mg by mouth., Disp: , Rfl: dapagliflozin (FARXIGA) 10 mg tablet, Take 10 mg by mouth., Disp: , Rfl: fexofenadine (HARLEEN) 180 mg tablet, Take 180 mg by mouth., Disp: , Rfl: lisinopriL (PRINIVIL,ZESTRIL) 20 mg tablet, , Disp: , Rfl: metoprolol succinate (TOPROL-XL) 50 mg 24 hr tablet, Take 1 tablet (50 mg total) by mouth daily. Donot crush or chew., Disp: 90 tablet, Rfl: 3 sildenafiL (VIAGRA) 100 mg tablet, Take 100 mg by mouth., Disp: , Rfl: testosterone cypionate (DEPO-TESTOSTERONE) 200 mg/mL injection, INJECT 1 ML INTRAMUSCULARLY EVERY TWO WEEKS, Disp: , Rfl: REVIEW OF SYSTEMS All other systems reviewed and are negative. OBJECTIVE BP 118/76 Pulse 101 Ht 183 cm Wt 83.9 kg BMI 25.05 kg/m?? PHYSICAL EXAMINATION General: Awake, alert, oriented. HEENT: MOHINDER, EOMI, mucous membranes moist, no oral lesions. Neck: No masses, no bruits. Lungs: Clear to auscultation. Heart: Regular rate and rhythm. No ectopy, murmurs, or rubs. Abdomen: Soft, non-tender. Extremities: No cyanosis, no clubbing, no edema. Neuro: Cranial nerves intact. Gait is normal, strength grossly normal. Skin: No suspicious lesions identified. Psychiatric: Normal affect. DIAGNOSTICS As above, hemoglobin A1c 6.4%, normal CBC creatinine 1.7 mg/dL and stable, hematuria noted as well as microalbuminuria at 120 milligrams/gram ASSESSMENT / PLAN #1 Chronic Kidney Disease (CKD), Stage 3a Glomerular Filtration Rate (GFR) 45 To 59 (HCC) His GFR has remained absolutely stable over the past several years, and I congratulated him. Going forward: 1. We should continue to maximally control blood pressure with a goal less than 120/80 which he hasachieved 2. Maximum medical therapy including SG LT 2 inhibitors have been applied both for his diabetes as well as for his CKD 3. Stay well hydrated 4. Low-sodium diet 5. Return to clinic in 6 months #2 Glomerulonephritis Immunoglobulin A (IgA Nephropathy) No gross hematuria, we are not using any disease modifying agent that is this point. Stated they are would likely support budesonide therapy, for now we will hold. #3 Hypertensive Chronic Kidney Disease With Stage 1 Through Stage 4 Chronic Kidney Disease, Or Unspecified Chronic Kidney Disease Goal blood pressures achieved we will continue with his regimen with the cornerstone being his ACEI. He has met goal correction values he is on a low-sodium diet he is sleeping reasonably well withoutevidence of nocturnal hypoxemia. #4 Diabetes Mellitus Type 2 (HCC) Excellent glycemic control, no hypoglycemic events, no secondary manifestations at this point. I congratulated him. We will continue on his SG LT 2 inhibitor and insulin. #5 Hyperlipidemia Mixed Excellent lipids, recorded these for him on a health screening form. Total time: 35 minutes Counseling Time: 30 minutes Ernesto Guillermo Jr., D.O. documented in this encounter Plan of Treatment Not on file documented as of this encounter Visit Diagnoses Diagnosis Chronic Kidney Disease (CKD), Stage 3a Glomerular Filtration Rate (GFR) 45 To 59 (HCC)- Primary Glomerulonephritis Immunoglobulin A (IgA Nephropathy) Hypertensive Chronic Kidney Disease With Stage 1 Through Stage 4 Chronic Kidney Disease, Or Unspecified Chronic Kidney Disease Diabetes Mellitus Type 2 (HCC) Hyperlipidemia Mixed documented in this encounter
--- OUTSIDE RECORDS SUMMARY | 2023-10-25 18:05 | XMS_ITS | Referral Summary ---
Author Organization [place] Address [facility] [place] [address] Care Team Providers Care Exit Booth Agent Name Role Phone [facility]- Primary Care Provider Allergies No known active [...] Suarez MD LAB - BLOOD ORDERABL ES [facility] Acute Care Lab [address] [facility] Lab (1st floor, no room number) [place] [address], [facility] [phone] from Last 3 Months or Most Recently Relevant to Health Maintenance Care Teams Exit Booth Agent Relationship Specialty Start Date End Date [facility]- [address] [place], [place] [id number] [facility] - General 01/21/22
== END 2023-10-21 15:31 | disposition home or self-care (01) ==
LOC: NFLDREF 10-25 18:03
PROVIDERS: PCP Emergency Medicine; Referring Provider Emergency Medicine; Visit Provider Internal Medicine Nephrology
DX: R79.89 Other specified abnormal findings of blood chemistry (principal); N02.8 Recurrent and persistent hematuria with other morphologic changes; N18.32 Chronic kidney disease, stage 3b; Z12.5 Encounter for screening for malignant neoplasm of prostate
CPT/HCPCS: G0103

== ENCOUNTER 2024-04-19 16:11 | Outpatient (CLI) | payer BC, SELFPAY | END 2024-04-19 16:12 | disposition home or self-care (01) | LOC: NFLDREF 04-21 07:49 | PROVIDERS: PCP Emergency Medicine; Referring Provider Emergency Medicine; Visit Provider Internal Medicine Nephrology | DX: I12.9 Hypertensive chronic kidney disease with stage 1 through stage 4 chronic kidney disease, or unspecified chronic kidney disease (principal); N18.32 Chronic kidney disease, stage 3b; N02.8 Recurrent and persistent hematuria with other morphologic changes | CPT/HCPCS: 80069; 82043; 82570; 82728; 83540; 83550; 83970; 84550; 86140; 87086 ==

== ENCOUNTER 2024-06-21 08:32 | Outpatient (CLI) | payer BC, SELFPAY | END 2024-06-21 08:33 | disposition home or self-care (01) | LOC: NFLDREF 06-29 15:54 | PROVIDERS: PCP Emergency Medicine; Referring Provider Emergency Medicine; Visit Provider Emergency Medicine | DX: E78.2 Mixed hyperlipidemia (principal); R79.89 Other specified abnormal findings of blood chemistry; Z12.5 Encounter for screening for malignant neoplasm of prostate | CPT/HCPCS: 80061; 80076; 84270; 84402; 84403; G0103 ==

== ENCOUNTER 2024-10-04 10:28 | Outpatient (CLI) | payer BC, SELFPAY | END 2024-10-04 10:29 | disposition home or self-care (01) | LOC: NFLDREF 10-07 02:32 | PROVIDERS: PCP Family Medicine; Visit Provider Internal Medicine Nephrology | DX: E11.22 Type 2 diabetes mellitus with diabetic chronic kidney disease (principal); I12.9 Hypertensive chronic kidney disease with stage 1 through stage 4 chronic kidney disease, or unspecified chronic kidney disease; N18.32 Chronic kidney disease, stage 3b; N02.8 Recurrent and persistent hematuria with other morphologic changes | CPT/HCPCS: 80061; 80069; 82043; 82570; 83970; 84443; 84450; 84460; 84550; 86140 ==

== ENCOUNTER 2024-10-19 15:20 | Emergency (ER) | payer BC, SELFPAY ==
--- OUTSIDE RECORDS SUMMARY | 2024-10-19 15:23 | XMS_ITS | Clinical Summary ---
Author Organization [place] Address [facility] [place] [address] Care Team Providers Care Magnetic Healer Name Role Phone [facility] [place]- Primary Care Provider Allergies No known active allergies Social History Tobacco Use Types Packs/Day Years Used Date Smoking Tobacco: Never Assessed Adolescent Education Answer Date Record ed Getting School Help Needed Not on file 11/05 Sex and Gender Information Value Date Recorded Sex Assigned at Not on file Legal Sex Male 4:32 AM FAMILY PRESERVATION CASEWORKER Gender Identity Not on file Sexual Orientation Not on file Last Filed Vital Signs Vital Sign Reading Time Taken Comments Blood Pressure 130/79 10/30/2022 6:47 PM CDT Pulse 95 10/30/2022 6:47 PM CDT Temperature 37.1 C (98.8 F) 10/30/2022 4:08 PM CDT Respiratory Rate 26 10/30/2022 6:47 PM CDT Oxygen Saturation 96% 10/30/2022 6:47 PM CDT Inhaled Oxygen Concentration - - Weight - - Height - - Body Mass Index - - Plan of Treatment Health Maintenance Due Date Last Done Comments ADVANCE CARE PLANNING 1970 ANNUAL REVIEW OF HM ORDERS 1969 CT COLONOGRAPHY 1969 FIT 1969 FLEX SIG 1969 sDNA (Cologuard) 1969 YEARLY PREVENTIVE VISIT 1972 COLONOSCOPY 07/31/1979 COLORECTAL CANCER SCREENING 07/31/1979 HIV SCREENING 1984 HEPATITIS C SCREENING 07/31/1987 LIPID 2009 HEPATITIS B VACCINE (2 of 3 - 19+ 3-dose series) 07/17/2012 06/19/2012 PNEUMOCOCCAL VACCINE 50+ YEARS (2 of 2 - PCV20 or PCV21) 11/11/2021 11/11/2020 PHQ-2 (once per calendar year) 2024 COVID-19 VACCINE (5 - season) 2024 12/13/2021, 11/18/2020, 05/12/2020, Additional history exists INFLUENZA VACCINE (#1) 2024 , 12/13/2021, 11/11/2020, Additional history exists DIABETES SCREENING 10/30/2025 10/30/2022, 1 03/24/2021, 01/21/2022 DTAP/TDAP/TD VACCINE (3 - Td or Tdap) 12/13/2031 12/12/2021, 06/19/2012, 07/15/2002 ZOSTER VACCINE Completed 01/25/2021, 11/11/2020 HPV VACCINE (No Doses Required) Completed MENINGITIS VACCINE Aged Out No longer eligible based on patient's age [...] 4:11 PM CDT 10/30/2022 4:19 PM CDT us Efren Suarez MD LAB - BLOOD ORDERABLES Final Res ult [facility] Acute Care Lab [address] Lab (1st floor, no room number) [place] [address], [facility] [phone] from Last 3 Months or Most Recently Relevant to Health Maintenance Insurance [employer] OUT OF STATE Care Teams Magnetic Healer Relationship Specialty Start Date End Date [facility]- [address] [place], [place] [id number] PCP - General 01/21/22
--- OUTSIDE RECORDS SUMMARY | 2024-10-19 15:23 | XMS_ITS | Clinical Summary ---
Author Organization [facility] Address [address] [place] [id number] Care Team Providers Care Policeman Name Role Phone Unavailable Primary Care Provider Unavailabl e Source Comments Patient records contain information from all sites at [facility]. For routine questions regarding patient records, call [phone] during business hours, M-F 8:00 AM - 5:00 PM Central Time. Record requests for emergency care only can be directed to [phone] at any time.[facility] Medications amLODIPine (NORVASC) 5 mg tablet Take 5 mg by mouth. 02/23/19 22 Active atorvastatin (LIPITOR) 40 mg tablet Take 40 mg by mouth. 02/23/19 22 Active dapagliflozin (FARXIGA) 10 mg tablet Take 10 mg by mouth. 02/23/19 22 Active fexofenadine (HARLEEN) 180 mg tablet Take 180 mg by mouth. 07/08/19 20 Active lisinopriL (PRINIVIL,ZEST RIL) 20 mg tablet 07/20/19 22 Active sildenafiL (VIAGRA) 100 mg tablet Take 100 mg by mouth. 02/23/19 22 Active testosterone cypionate (DEPO-TESTOSTE LESLIE) 200 mg/mL injection INJECT 1 ML INTRAMUSCULARLY EVERY TWO WEEKS 02/24/19 22 Active metoprolol succinate (TOPROL-XL) 50 mg 24 hr tablet Take 1 tablet (50 mg total) by mouth daily. Do not crush or chew. 90 tablet 3 11/05/19 23 Active Active Problems Problem Noted Date Diagnosed Date Hypogonadism Male 10/19/2024 Tachycardia 01/22/2022 Chronic Kidney Disease (CKD) , Stage 3a Glomerular Filtration Rate (GFR) 45 To 59 03/26/2021 Glomerulonephritis Immunoglobulin A (IgA Nephrop athy) 03/26/2021 Diabetes Mellitus Type 2 03/26/2021 Hyperlipidemia Mixed 03/26/2021 Hypertensive Chronic Kidney Disease With Stage 1 Through Stage 4 Chronic Kidney Disease, Or Unspecified Chronic Kidney Disease 03/26/2021 Resolved Problems Problem Noted Date Diagnosed Date Resolved Date Weakness General 01/22/2022 04/26/2024 Encounters Date Type Department Care Team Description 10/19/2024 4:30 PM CDT External Outreach Division of Nephrology and Hypertension in [place], [place] [address] [place] [address] Ernesto Guillermo Jr., D.O. Chronic Kidney Disease (CKD), Stage 3a Glomerular Filtration Rate (GFR) 45 To 59 (HCC) (Primary Dx); Glomerulonephritis Immunoglobulin A (IgA Nephropathy); Diabetes Mellitus Type 2 (HCC); Hypertensive Chronic Kidney Disease With Stage 1 Through Stage 4 Chronic Kidney Disease, Or Unspecified Chronic Kidney Disease; Hyperlipidemia Mixed; Hypogonadism Male 10/04/2024 Orders Only Division of Nephrology and Hypertension in [place], [place] [address] [place] [phone] External, Ordering Provider, MTabatha 10/04/2024 Orders Only Division of Nephrology and Hypertension in [place], [place] [address] [place] [phone] External, Ordering Provider, Trish 10/04/2024 Orders Only Division of Nephrology and Hypertension in [place], [place] [address] [place] [phone] External, Ordering ProviderTrish from Last 3 Months Social History Tobacco Use Types Packs/Day Years Used Date Smoking Tobacco: Never Assessed Sex and Gender Information Value Date Recorded Sex Assigned at Not on file Legal Sex Male 12:13 PM [employer] Gender Identity Not on file Sexual Orientation Not on file Last Filed Vital Signs Vital Sign Reading Time Taken Comments Blood Pressure 143/88 10/19/2024 2:41 PM CDT Pulse 109 10/19/2024 2:41 PM CDT Temperature - - Respiratory Rate - - Oxygen Saturation - - Inhaled Oxygen Concentration - - Weight 83.2 kg (183 lb 6.8 oz) 10/19/2024 2:41 P M CDT Height 182.2 cm (5' 11.73) 10/19/2024 2:41 PM C DT Body Mass Index 25.06 10/19/2024 2:41 PM CDT Plan of Treatment Upcoming Encounters Date Type Department Care Team (Latest Contact Info) Description 10/19/2024 4:30 PM CDT External Outreach Division of Nephrology and Hypertension in [place], [place] [address] [place] [address] Ernesto Guillermo Jr., D.O. [address] [place] [address] Chronic Kidney Disease (CKD), Stage 3a Glomerular Filtration Rate (GFR) 45 To 59 (HCC) (Primary Dx); Glomerulonephritis Immunoglobulin A (IgA Nephropathy); Diabetes Mellitus Type 2 (HCC); Hypertensive Chronic Kidney Disease With Stage 1 Through Stage 4 Chronic Kidney Disease, Or Unspecified Chronic Kidney Disease; Hyperlipidemia Mixed; Hypogonadism Male Health Maintenance Due Date Last Done Comments CT Colonography 1969 Cologuard 1969 Diabetic Eye Exam 1969 Diabetic Office Visit with Foot Exam 1969 FIT 1969 HIV Screening 1969 Hepatitis C Screening 1969 Hepatitis B Vaccines (2 of 3 - 19+ 3-dose series) 07/17/2012 06/19/2012 Depression Screening (Annual PHQ-2) 02/11/2024 COVID-19 Vaccine ( season) 2024 12/13/2021, 11/18/2020, 05/12/2020, Additional history exists Influenza Vaccine (#1) 2024 , 01/29/2023, 12/13/2021, Additional history exists Office Visit for Blood Pressure Check / Re-check 01/18/2025 10/19/2024 Hemoglobin A1C 04/06/2025 10/04/2024, 01/10, 07/31/2020, Additional history exists Creatinine Level (Kidney Function Test) 10/04/2025 10/04/2024, 04/19/2024, 10/30/2022, Additional history exists Potassium Level 10/04/2025 10/04/2024, 04/10, 10/30/2022, Additional history exists Sodium Level 10/04/2025 10/04/2024, 04/10, 10/30/2022, Additional history exists Urine Albumin 10/04/2025 10/04/2024, 04/19/2024 Lipid (Cholesterol) Screening 10/04/2029 10/04/2024, 07/31/2020, 07/19/2019, Additional history exists Colonoscopy 09/22/2030 09/22/2020 Colorectal Cancer Screening 09/22/2030 DTaP,Tdap,and Td Vaccines (3 - Td or Tdap) 12/13/2031 12/12/2021, 06/19/2012, 07/15/2002 Zoster Vaccines Completed 01/25/2021, 11/11/2020 Pneumococcal vaccine (50+ years) Completed 04/30/2023, 11/11/2020 IPV Vaccines Aged Out No longer eligi ble based on patient's age to complete this topic Procedures Procedure Name Priority Date/Time Associated Diagnosis Comments ALBUMIN, RANDOM, U Routine 10/04/2024 10 :35 AM CDT EXTP URINALYSIS WITH MICROSCOPY, URINE Routine 10/04/2024 10:35 AM CDT LIPID PANEL, S Routine 10/04/2024 10:28 AM CDT PARATHYROID HORMONE (PTH), S Routine 10/04/2024 10:28 AM CDT LIPID PANEL, S Routine 10/04/2024 10:28 AM CDT C-REACTIVE PROTEIN (CRP), S/P Routine 10/04/2024 10:28 AM CDT PHOSPHORUS (INORGANIC), S Routine 10/04/2024 10:28 AM CDT URIC ACID, S/P Routine 10/04/2024 10:28 AM CDT COMPREHENSIVE METABOLIC PANEL, S/P Routine 10/04/2024 10:28 AM CDT CBC WITH DIFFERENTIAL, B Routine 10/04/2024 10:28 AM CDT HEMOGLOBIN A1C, B Routine 10/04/2024 10: 28 AM CDT from Last 3 Months Results * (ABNORMAL) EXT Urinalysis with Microscopy, Urine (10/04/2024 10:35 AM CDT) EXT Color Yellow Yellow [facility] EXT Appearance, Urine Clear Clear [facility] EXT Glucose Qualitative, Urine 2+(A) Negative [facility] EXT Bilirubin, Urine Negative Negative [facility] EXT Ketones, POCT, Urine Negative Negative [facility] EXT Specific Perry, POCT, Urine 1.020 1.000 - 1.030 [facility] EXT Blood, Urine 2+(A) Negative [facility] EXT pH, Random, Urine 6.0 5.0 - 8.5 [facility] EXT Protein, Urine 2+(A) Negative [facility] EXT Urobilinogen, Urine 0.2 0.2 - 1.0 [facility] EXT Nitrite, Urine Negative Negative [facility] EXT Leukocyte Esterase, Urine Negative Negative [facility] EXT Red Blood Cells, U 5-10(A) 0 - [address] [facility] EXT White Blood Cells, U 0-2 0 - [address] [facility] EXT Squamous Cells None None-Few [facility] EXT Bacteria None None [facility] 10/04/2024 10:3 5 AM CDT Narrative [facility] - 10/04/2024 1:57 PM CDT Source result document attached to Order Number [id number] (HEMOGLOBIN A1C, B) dated 10/04/2024. External results verified in Extract by Tamika Christina on 10/04/2024 at 01:54 PM. us Ordering Provider External Trish LAB URINE ORDERA BLES Final Result Performing Organization Address [facility]/ZIP Co de Phone Number [facility] [address] [place] [address], [facility] [phone] * (ABNORMAL) Albumin, Random, Urine (10/04/2024 10:35 AM CDT) EXT Creatinine, Urine 120.1 mg/dL [facility] EXT Microalbumin-R andom, U 208 mg/dL [facility] EXT Albumin/Creati nine Ratio 1,730(H) 0 - 30 [facility] 10/04/2024 10:[address] [facility] [place] [facility] - 10/04/2024 3:15 PM CDT Source result document attached to Order Number [id number] (COMPREHENSIVE METABOLIC PANEL, BLOOD) dated 10/04/2024. External results verified in Extract by Tamika Christina on 10/04/2024 at 03:13 PM. us Ordering Provider External Trish LAB URINE ORDERA BLES Final Result Performing Organization Address [facility] de Phone Number [employer] [facility] [address] [place] [address], [facility] [phone] * (ABNORMAL) Lipid Panel (10/04/2024 10:28 AM CDT) Only the most recent of2 resultswithin the time period is included. EXT Triglycerides, S 219(H) 40 - 149 mg/dL [facility] EXT Cholesterol, Total, S 144 90 - 199 mg/dL [facility] EXT Calculated LDL 67 <100 mg/dL [facility] EXT Cholesterol, HDL, S 33(L) >=40 mg/dL [facility] 10/04/2024 10:[address] [facility] - 10/05/2024 7:16 AM CDT External results verified in Extract by Tamika Christina on 10/05/2024 at 07:14 AM. us Ordering Provider External Trish LAB BLOOD ADD-ON Final Result Performing Organization Address [facility] Co de Phone Number [facility] [address] [place] [address], [facility] [phone] * (ABNORMAL) CBC with Differential, Blood (10/04/2024 10:28 AM CDT) [facility] EXT Leukocytes 6.54 4.50 - 11.00 K/uL [facility] EXT RBC 5.01 4.30 - 5.90 m/uL [facility] EXT Hemoglobin 15.4 13.5 - 17.5 gm/dL [facility] EXT Hematocrit 46.2 37.0 - 53.0 % [facility] EXT MCV 92 80 - 100 fL [facility] EXT Platelet Count 139(L) 140 - 440 K/uL [facility] 10/04/2024 10:2 8 AM CDT Narrative [employer] [facility] - 10/04/2024 1:57 PM CDT Source result document attached to Order Number [id number] (HEMOGLOBIN A1C, B) dated 10/04/2024. External results verified in Extract by Tamika Christina on 10/04/2024 at 01:54 PM. us Ordering Provider External Trish LAB BLOOD ADD-ON Final Result Performing Organization Address City/[facility]/ZIP Co de Phone Number [place] [facility] [address] [place] [address], [facility] [phone] * (ABNORMAL) CRP (C-Reactive Protein) (10/04/2024 10:28 AM CDT) [facility] EXT C-Reactive Protein Quantative <0.5(L) 0.5 - 1.0 mg/dL [facility] 10/04/2024 10:2 8 AM CDT Narrative [employer] [facility] - 10/04/2024 3:15 PM CDT Source result document attached to Order Number [id number] (COMPREHENSIVE METABOLIC PANEL, BLOOD) dated 10/04/2024. External results verified in Extract by Tamika Christina on 10/04/2024 at 03:13 PM. us Ordering Provider Summer Chambers LAB BLOOD ADD-ON Final Result Performing Organization Address [facility] de Phone Number [employer] [facility] [facility] [address] [phone] * Uric Acid (10/04/2024 10:28 AM CDT) EXT Uric Acid, S 7.5 2.2 - 8.4 mg/dL [facility] 10/04/2024 10:2 8 AM CDT Narrative [employer] [facility] - 10/04/2024 3:15 PM CDT Source result document attached to Order Number [id number] (COMPREHENSIVE METABOLIC PANEL, BLOOD) dated 10/04/2024. External results verified in Extract by Tamika Christina on 10/04/2024 at 03:13 PM. us Ordering Provider Summer Chambers LAB BLOOD ADD-ON Final Result Performing Organization Address [facility] Co de Phone Number [employer] [facility] [address] [phone] * Phosphorus Inorganic (10/04/2024 10:28 AM CDT) EXT Phosphorus (Inorganic), S 2.7 2.5 - 4.5 mg/dL [facility] 10/04/2024 10:2 8 AM CDT Narrative [employer] [facility] - 10/04/2024 3:15 PM CDT Source result document attached to Order Number [id number] (COMPREHENSIVE METABOLIC PANEL, BLOOD) dated 10/04/2024. External results verified in Extract by Tamika Christina on 10/04/2024 at 03:13 PM. us Ordering Provider External M.D. LAB BLOOD ADD-ON Final Result Performing Organization Address [facility] de Phone Number [facility] [address] [place] [address] * Parathyroid Hormone (PTH) (10/04/2024 10:28 AM CDT) Parathyroid Hormone (PTH) 29.1 14.2 - 75.2 pg/mL [facility] 10/04/2024 10:2 8 AM CDT Narrative [facility] - 10/04/2024 3:15 PM CDT Source result document attached to Order Number [id number] (COMPREHENSIVE METABOLIC PANEL, BLOOD) dated 10/04/2024. External results verified in Extract by Tamika Christina on 10/04/2024 at 03:13 PM. us Ordering Provider External Trish LAB BLOOD ADD-ON Final Result Performing Organization Address [facility] Phone Number [facility] [address] [place] [address] * (ABNORMAL) Hemoglobin A1c (10/04/2024 10:28 AM CDT) EXT Hemoglobin A1c, B 6.9(H) 0 - 5.6 % [facility] 10/04/2024 10:2 8 AM CDT Narrative [facility] - 10/04/2024 1:57 PM CDT External results verified in Extract by Tamika Christina on 10/04/2024 at 01:54 PM. us Ordering Provider External M.DVance LAB BLOOD ADD-ON Final Result [facility] [address] [place], [place] [address] [phone] * (ABNORMAL) Comprehensive Metabolic Panel (10/04/2024 10:28 AM CDT) EXT Sodium 138 135 - 149 mmol/L [facility] EXT Potassium 4.6 3.6 - 5.1 mmol/L [facility] EXT Chloride 102 96 - 114 mmol/L [facility] EXT CO2 32 20 - 32 mmol/L [facility] EXT Anion Gap 4(L) 7 - 15 mEq/L [facility] EXT BUN (Blood Urea Nitrogen) 17 7 - 30 mg/dL [facility] EXT Creatinine 1.4 0.5 - 1.5 mg/dL [facility] EXT Estimated GFR (eGFR) 59 ml/min [facility] EXT Calcium, Total 9.4 8.4 - 10.6 mg/dL [facility] EXT Glucose 142(H) 60 - 115 mg/dL [facility] EXT Albumin 4.0 3.3 - 5.0 g/dL [facility] EXT AST 25 12 - 35 U/L [facility] EXT ALT 21 4 - 50 U/L [facility] 10/04/2024 10:2 8 AM CDT Narrative [facility] - 10/04/2024 3:15 PM CDT External results verified in Extract by Tamika Christina on 10/04/2024 at 03:13 PM. us Ordering Provider External M[employer] LAB BLOOD ADD-ON Final Result Performing Organization Address City/[facility]/ZIP Co de Phone Number [facility] [address] [place] [address], [facility] [phone] from Last 3 Months Insurance [facility]
--- OUTSIDE RECORDS SUMMARY | 2024-10-19 15:24 | XMS_ITS | Encounter Summary ---
Author Organization [facility] Address [address] [place] [address] Care Team Providers Care Industrial Gas Service Helper Name Role Phone Unavailable Primary Care Provider Unavailabl e Encounter Details Date Type Department Care Team ( st Contact Info) Description 10/04/2024 Orders Only Division of Nephrology and Hypertension in [place], [place] [address] [place] [phone] External, Ordering ProviderTrish Social History Tobacco Use Types Packs/Day Years Used Date Smoking Tobacco: Never Assessed Sex and Gender Information Value Date Recorded Sex Assigned at Not on file 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 [address] [place] [phone] Chronic Kidney Disease (CKD), Stage 3a Glomerular Filtration Rate (GFR) 45 To 59 (HCC) (Primary Dx); Glomerulonephritis Immunoglobulin A (IgA Nephropathy); Diabetes Mellitus Type 2 (HCC); Hypertensive Chronic Kidney Disease With Stage 1 Through Stage 4 Chronic Kidney Disease, Or Unspecified Chronic Kidney Disease; Hyperlipidemia Mixed; Hypogonadism Male documented as of this encounter Procedures Procedure Name Priority Date/Time Associated Diagnosis Comments LIPID PANEL, S Routine 10/04/2024 10:28 AM CDT documented in this encounter Results * (ABNORMAL) Lipid Panel (10/04/2024 10:28 AM CDT) EXT Triglycerides, S 219(H) 40 - 149 mg/dL [facility] EXT Cholesterol, Total, S 144 90 - 199 mg/dL [facility] EXT Calculated LDL 67 <100 mg/dL [facility] EXT Cholesterol, HDL, S 33(L) >=40 mg/dL [facility] 10/04/2024 10:2 8 AM CDT Narrative [facility] - 10/05/2024 7:16 AM CDT External results verified in Extract by Tamika Christina on 10/05/2024 at 07:14 AM. us Ordering Provider External M.DVance LAB BLOOD ADD-ON Final Result [facility] [address] [place] [address] documented in this encounter Visit Diagnoses Not on filedocumented in this encounter
--- OUTSIDE RECORDS SUMMARY | 2024-10-19 15:24 | XMS_ITS | Clinical Summary ---
Author Organization [facility] Address [address] [place] [address] Care Team Providers Care Manager Shipping Name Role Phone Nick Snell MD Primary Care Provider Allergies No known active allergies Medications fexofenadine (HARLEEN) 180 mg tabletIndication s:Seasonal allergies Take 1 tablet by mouth once daily with a meal. 90 tablet 3 07/08/19 20 Active BD LUER-DWIGHT SYRINGE 1 mL syrgIndications: Low testosterone in male DIRECTED. 6 Each 3 02/07/20 20 Active blood sugar diagnostic (BLOOD GLUCOSE TEST) stripIndications :Controlled type 2 diabetes mellitus without complication, without long-term current use of insulin (HC) As directed. Test 1 times per day. One touch (or for whichever meter patient has). 100 Strip 03/03/19 21 Active mometasone (NASONEX) (50 mcg each actuation) nasal sprayIndications :Seasonal allergies Inhale 2 Sprays to both nostrils once daily. 3 canister 06/07/19 21 Active B-D 3cc Luer-Dwight Syr 17If5-7/2 3 mL 22 x 1 1/2 syrg USE DIRECTED 07/28/19 21 Active dapagliflozin (FARXIGA) 10 mg tabletIndication s:Controlled type 2 diabetes mellitus without complication, without long-term current use of insulin (HC) Take 1 Tablet (10 mg) by mouth once daily. 90 tablet. 1 02/23/19 22 Active zolpidem (AMBIEN) 5 mg tabletIndication s:Insomnia, idiopathic Take 1-2 tabs at bedtime as needed for sleep 30 Tablet 02/24/19 22 Active atorvastatin (LIPITOR) 40 mg tabletIndication s:Dyslipidemia Take 1 Tablet (40 mg) by mouth at bedtime. 90 Tablet 02/23/19 Active sildenafil citrate (VIAGRA) 100 mg tabletIndication s:Other male erectile dysfunction Take 1 Tablet (100 mg) by mouth once daily if needed for Erectile Dysfunction. Take 30min to 4 hours before sexual activity. Max 100mg/24hr. 30 Tablet 5 02/23/19 Active amLODIPine (NORVASC) 5 mg tabletIndication s:Hypertension, unspecified type Take 1 Tablet (5 mg) by mouth once daily. 90 Tablet 02/23/19 22 Active lisinopriL (PRINIVIL; ZESTRIL) 20 mg tabletIndication s:Type 2 diabetes mellitus without complication, without long-term current use of insulin (HC) Take 1 Tablet (20 mg) by mouth once daily. 90 tablet. 02/23/19 Active testosterone cypionate (DEPO-TESTOSTERO NE) 200 mg/mL injectionIndicat ions:Low testosterone in male INJECT 1 ML INTRAMUSCULARLY EVERY TWO WEEKS 6 mL 1 02/24/19 Active needle, disp, 18 g ( Regular Bevel Kellogg) 18 gauge x 1 1/2 ndleIndications: Low testosterone in male As directed. 100 Each 2 03/05/19 Active needle, disp, 22 g ([place] Disp Kellogg 23Uo8-9/2) 22 gauge x 1 1/2 ndleIndications: Low testosterone in male As directed. 100 Each 2 03/05/19 Active Syringe, Disposable, 1 mL syrgIndications: Low testosterone in male As directed. 100 Each 03/05/19 22 Active Active Problems Problem Noted Date Diagnosed [...] mention of complication, uncontrolled 05/16/2011 06/19/2012 Immunizations Immunization Administration Dates Next Due COVID-19 vaccine ([employer] 30mcg/0.3mL) PF, MDV 05/12/2020,04/21/2020 Hepatitis A (Adult) 06/12/2018 Hepatitis B (Adult) 06/19/2012 Influenza A (H1N1), Inactivated 01/28/2009 Influenza, IIV3 (Age >=3 years) 12/29/2012,12/10 Influenza, IIV4 11/11/2020, 0,12/14/2018,2016,12/09/2014 Influenza, RIV3 (Age =>9 Years) 01/07/2014 Pneumococcal conj 13-Valent (Prevnar 13) 11/11/2020 Td (Age >=7 Years) 07/15/2002 Tdap 06/19/2012 Zoster (Shingrix-RZV, recombinant) 01/25/2021, Family History Medical History Relation Name Comments Anxiety disorder Daughter 1 Joanna Depression Daughter 1 [facility] Daughter 1 Joanna Asthma Daughter [...] at Not on file 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 Gender Identity Not on file Sexual Orientation Not on file Obstetrics History Last Filed Vital Signs Vital Sign Reading Time Taken Comments Blood Pressure 124/70 01/30/2021 7:13 AM MAGNETIC PROSPECTING OPERATOR Pulse 84 01/30/2021 7:13 AM MAGNETIC PROSPECTING OPERATOR Temperature 36.3 C (97.3 F) 09/22/2020 7:13 AM CDT Respiratory Rate 16 09/22/2020 8:45 AM CDT Oxygen Saturation 100% 09/22/2020 9:00 AM CDT Inhaled Oxygen Concentration - - Weight 84.8 kg (187 lb) 01/30/2021 7:13 AM MAGNETIC PROSPECTING OPERATOR Height 182.9 cm (6') 09/22/2020 7:13 AM CDT Body Mass Index 25.36 09/22/2020 7:13 AM CDT Plan of Treatment Health Maintenance Due Date Last Done Comments HIV for age 15-65 1984 Hepatitis C screening for ag e 18-79 07/31/1987 Hepatitis B series for 19+ ( 2 of 3 - 19+ 3-dose series) 07/17/2012 06/19/2012 Pneumococcal series for age 50+ (2 of 2 - PPSV23, PCV20, or PCV21) 01/06/2021 11/11/2020 BMI (ht and wt on same day) for age 18+ 03/03/2021 03/03/2020, 06/12/2018, 05/30/2017, Additional history exists Depression screening for age 12+ 01/30/2022 01/30/2021, 10/04/2019, 06/12/2018, Additional history exists Tetanus booster 06/19/2022 06/19/2012, 07/15/2002 COVID-19 vaccine series ( season) 2024 12/13/2021, 11/18/2020, 05/12/2020, Additional history exists Influenza Vaccine (#1) 2024 , 12/12/2019, 12/14/2018, Additional history exists Lipids for age 45-75 07/31/2025 07/31/2020, 07/19/2019, 06/12/2018, Additional history exists Colonoscopy through age 75 09/22/2025 09/22/2020 RSV vaccine for adults or (1 - 1-dose 75+ series) 2044 Zoster (shingles) series for age 50+ Completed [...] 28 seconds Zofia Mae MD PROCEDURE ORD Final Result * (ABNORMAL) LIPID PANEL W REFLEX MEASURED LDL (07/31/2020 3:34 PM CDT) CHOLESTEROL,TOTAL 189 100 - 199 mg/dL 08/01/2020 2:18 PM CDT [facility] TRIGLYCERIDES 384(H) <150 mg/dL 08/01/2020 2:18 PM CDT [facility] HDL CHOLESTEROL 33(L) >40 mg/dL 2:18 PM CDT [facility] NON-HDL CHOLESTEROL 156(H) <145 mg/dl 08/01/2020 2:18 PM CDT [facility] CHOL/HDL RATIO 5.73(H) <4.50 08/01/2020 2:18 PM CDT [facility] LDL CHOLESTEROL 79 <=130 mg/dL 08/01/2020 2:18 PM CDT [facility] VLDL CHOLESTEROL 77 mg/dL 08/02/19 2:18 PM CDT [facility] PROVIDER ORDERED STATUS RANDOM 08/01/2020 2:18 PM CDT [facility] Blood BLOOD SPECIMEN / Unknown Venipuncture / Unknown 07/31/2020 3:34 PM CDT 07/31/2020 3:34 PM CDT Nick Snell MD CHEMISTRY Final R esult [facility] [address] [place] [address], [facility] [address] [place] [address] from Last 3 Months or Most Recently Relevant to Health Maintenance Insurance [employer]UE [employer] OF NON-ID-ITS Advance Directives * Full Code (Latest Code Status on File) Date Activated Date Inactivated Comments 09/22/2020 7:20 AM 09/22/2020 11:11 AM Question Answer Comments Code Status Discussion: Not Discussed Care Teams Manager Shipping Relationship Specialty [place] [address] [place] [address] PCP - General Family Practice 07/31/20 [facility] [place] [address] Ophthalmology 02/13/21
--- OUTSIDE RECORDS SUMMARY | 2024-10-19 15:24 | XMS_ITS | Encounter Summary ---
Author Organization [facility] Address [address] [place] [address] Care Team Providers Care Studio Grip Name Role Phone Unavailable Primary Care Provider Unavailabl e Encounter Details Date Type Department Care Team ( st Contact Info) Description 10/04/2024 Orders Only Division of Nephrology and Hypertension in [place], [place] [address] [place] [phone] External, Ordering ProviderTrish Social History Tobacco Use Types Packs/Day Years Used Date Smoking Tobacco: Never Assessed Sex and Gender Information Value Date Recorded Sex Assigned at Not on file 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 [address] [place] [phone] Chronic Kidney Disease (CKD), Stage 3a Glomerular Filtration Rate (GFR) 45 To 59 (HCC) (Primary Dx); Glomerulonephritis Immunoglobulin A (IgA Nephropathy); Diabetes Mellitus Type 2 (HCC); Hypertensive Chronic Kidney Disease With Stage 1 Through Stage 4 Chronic Kidney Disease, Or Unspecified Chronic Kidney Disease; Hyperlipidemia Mixed; Hypogonadism Male documented as of this encounter Procedures Procedure Name Priority Date/Time Associated Diagnosis Comments EXTP URINALYSIS WITH MICROSCOPY, URINE Routine 10/04/2024 10:35 AM CDT CBC WITH DIFFERENTIAL, B Routine 10/04/2024 10:28 AM CDT HEMOGLOBIN A1C, B Routine 10/04/2024 10: 28 AM CDT documented in this encounter Results * (ABNORMAL) EXT Urinalysis with Microscopy, Urine (10/04/2024 10:35 AM CDT) EXT Color Yellow Yellow [facility] EXT Appearance, Urine Clear Clear [facility] Glucose Qualitative, Urine 2+(A) Negative [facility]T Bilirubin, Urine Negative Negative [facility] EXT Ketones, POCT, Urine Negative Negative [facility] EXT Specific [place], POCT, Urine 1.020 1.000 - 1.030 [facility] EXT Blood, Urine 2+(A) Negative [facility] EXT pH, Random, Urine 6.0 5.0 - 8.5 [facility] EXT Protein, Urine 2+(A) Negative [facility] EXT Urobilinogen, Urine 0.2 0.2 - 1.0 [facility] EXT Nitrite, Urine Negative Negative [facility]T Leukocyte Esterase, Urine Negative Negative [facility] EXT Red Blood Cells, U 5-10(A) 0 - 2 [facility] EXT White Blood Cells, U 0-2 0 - 5 [facility] EXT Squamous Cells None None-Few [facility] Bacteria None None [facility] 10/04/2024 10:3 5 AM CDT Narrative [facility] - 10/04/2024 1:57 PM CDT Source result document attached to Order Number [id number] (HEMOGLOBIN A1C, B) dated 10/04/2024. External results verified in Extract by Tamika Christina on 10/04/2024 at 01:54 PM. us Ordering Provider External M.D. LAB URINE ORDERA BLES Final Result Performing Organization Address [facility] Co de Phone Number [facility] [address] [place] [address], [facility] [phone] * (ABNORMAL) CBC with Differential, Blood (10/04/2024 10:28 AM CDT) EXT Leukocytes 6.54 4.50 - 11.00 K/uL [facility] EXT RBC 5.01 4.30 - 5.90 m/uL [facility] EXT Hemoglobin 15.4 13.5 - 17.5 gm/dL [facility] Hematocrit 46.2 37.0 - 53.0 % [facility] EXT MCV 92 80 - 100 fL [facility]T Platelet Count 139(L) 140 - 440 K/uL [facility] 10/04/2024 10:2 8 AM CDT Narrative [employer] [facility] - 10/04/2024 1:57 PM CDT Source result document attached to Order Number [id number] (HEMOGLOBIN A1C, B) dated 10/04/2024. External results verified in Extract by Tamika Christina on 10/04/2024 at 01:54 PM. us Ordering Provider External M.DVance LAB BLOOD ADD-ON Final Result Performing Organization Address [facility] de Phone Number [employer] [facility] LOCATION [facility] [address] [place] [address], [facility] [phone] * (ABNORMAL) Hemoglobin A1c (10/04/2024 10:28 AM CDT) EXT Hemoglobin A1c, B 6.9(H) 0 - 5.6 % [facility] 10/04/2024 10:2 8 AM CDT Narrative [facility] - 10/04/2024 1:57 PM CDT External results verified in Extract by Tamika Christina on 10/04/2024 at 01:54 PM. us Ordering Provider External MTabatha LAB BLOOD ADD-ON Final Result Performing Organization Address City/State/[facility] Co de Phone Number [facility] [address] [place] [address], [facility] [phone] documented in this encounter Visit Diagnoses Not on filedocumented in this encounter
--- OUTSIDE RECORDS SUMMARY | 2024-10-19 15:24 | XMS_ITS | Encounter Summary ---
Author Organization [facility] Address [address] [place] [address] Care Team Providers Care Local Company Intermodal Truck Driver Name Role Phone Unavailable Primary Care Provider Unavailabl e Encounter Details Date Type Department Care Team ( st Contact Info) Description 10/04/2024 Orders Only Division of Nephrology and Hypertension in [place], [place] [address] [place] [phone] External, Ordering ProviderTrish Social History Tobacco Use Types Packs/Day Years Used Date Smoking Tobacco: Never Assessed Sex and Gender Information Value Date Recorded Sex Assigned at Not on file 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 [address] [place] [phone] Chronic Kidney Disease (CKD), Stage 3a Glomerular [...] U Routine 10/04/2024 10 :35 AM CDT LIPID PANEL, S Routine 10/04/2024 10:28 AM CDT C-REACTIVE PROTEIN (CRP), S/P Routine 10/04/2024 10:28 AM CDT URIC ACID, S/P Routine 10/04/2024 10:28 AM CDT PHOSPHORUS (INORGANIC), S Routine 10/04/2024 10:28 AM CDT PARATHYROID HORMONE (PTH), S Routine 10/04/2024 10:28 AM CDT COMPREHENSIVE METABOLIC PANEL, S/P Routine 10/04/2024 10:28 AM CDT documented in this encounter Results * (ABNORMAL) Albumin, Random, Urine (10/04/2024 10:35 AM CDT) EXT Creatinine, Urine 120.1 mg/dL [facility] EXT Microalbumin-R andom, U 208 mg/dL [facility] EXT Albumin/Creati nine Ratio 1,730(H) 0 - 30 [facility] 10/04/2024 10:3 5 AM CDT Narrative [facility] - 10/04/2024 3:15 PM CDT Source result document attached to Order Number [id number] (COMPREHENSIVE METABOLIC PANEL, BLOOD) dated 10/04/2024. External results verified in Extract by Tamika Christina on 10/04/2024 at 03:13 PM. us Ordering Provider External M.DVance LAB URINE ORDERA BLES Final Result [facility] [address] [place] [address] * Parathyroid Hormone (PTH) (10/04/2024 10:28 AM CDT) Parathyroid Hormone (PTH) 29.1 14.2 - 75.2 pg/mL [facility] 10/04/2024 10:2 8 AM CDT Narrative [facility] - 10/04/2024 3:15 PM CDT Source result document attached to Order Number [id number] (COMPREHENSIVE METABOLIC PANEL, BLOOD) dated 10/04/2024. External results verified in Extract by Tamika Christina on 10/04/2024 at 03:13 PM. us Ordering Provider External Trish LAB BLOOD ADD-ON Final Result Performing Organization Address [facility]/ZIP Co de Phone Number [email or web address] [facility] [address] [place] [address] * (ABNORMAL) Lipid Panel (10/04/2024 10:28 AM CDT) Pathologist [facility] EXT Cholesterol, HDL, S 32(L) >=40 mg/dL [facility] 10/04/2024 10:2 8 AM CDT Narrative [email or web address] [facility] - 10/04/2024 3:15 PM CDT Source result document attached to Order Number [id number] (COMPREHENSIVE METABOLIC PANEL, BLOOD) dated 10/04/2024. External results verified in Extract by Tamika Christina on 10/04/2024 at 03:13 PM. us Ordering Provider External Trish LAB BLOOD ADD-ON Final Result [email or web address] [facility] [address] [phone] * (ABNORMAL) CRP (C-Reactive Protein) (10/04/2024 10:28 AM CDT) EXT C-Reactive Protein Quantative <0.5(L) 0.5 - 1.0 mg/dL [facility] 10/04/2024 10:2 8 AM CDT Narrative [facility] - 10/04/2024 3:15 PM CDT Source result document attached to Order Number [id number] (COMPREHENSIVE METABOLIC PANEL, BLOOD) dated 10/04/2024. External results verified in Extract by Tamika Christina on 10/04/2024 at 03:13 PM. us Ordering Provider Summer Chambers LAB BLOOD ADD-ON Final Result Performing Organization Address [facility] de Phone Number [facility] [address] [phone] * Phosphorus Inorganic (10/04/2024 10:28 AM CDT) EXT Phosphorus (Inorganic), S 2.7 2.5 - 4.5 mg/dL [facility] 10/04/2024 10:2 8 AM CDT Narrative [facility] - 10/04/2024 3:15 PM CDT Source result document attached to Order Number [id number] (COMPREHENSIVE METABOLIC PANEL, BLOOD) dated 10/04/2024. External results verified in Extract by Tamika Christina on 10/04/2024 at 03:13 PM. us Ordering Provider Summer Chambers LAB BLOOD ADD-ON Final Result Performing Organization Address [facility] de Phone Number [facility] [address] [phone] * Uric Acid (10/04/2024 10:28 AM CDT) EXT Uric Acid, S 7.5 2.2 - 8.4 mg/dL [facility] 10/04/2024 10:2 8 AM CDT Narrative [facility] - 10/04/2024 3:15 PM CDT Source result document attached to Order Number [id number] (COMPREHENSIVE METABOLIC PANEL, BLOOD) dated 10/04/2024. External results verified in Extract by Tamika Christina on 10/04/2024 at 03:13 PM. us Ordering Provider External Trish LAB BLOOD ADD-ON Final Result Performing Organization Address City/[facility]/ZIP Co de Phone Number [facility] [address] [place], [place] [address] [phone] * (ABNORMAL) Comprehensive Metabolic Panel (10/04/2024 10:28 AM CDT) EXT Sodium 138 135 - 149 mmol/L [facility] EXT Potassium 4.6 3.6 - 5.1 mmol/L [facility] EXT Chloride 102 96 - 114 mmol/L [facility] EXT CO2 32 20 - 32 mmol/L [facility] EXT Anion Gap 4(L) 7 - 15 mEq/L [facility] EXT BUN (Blood Urea Nitrogen) 17 7 - 30 mg/dL [facility] EXT Creatinine 1.4 0.5 - 1.5 mg/dL [facility] EXT Estimated GFR (eGFR) 59 ml/min [facility] EXT Calcium, Total 9.4 8.4 - 10.6 mg/dL [facility] EXT Glucose 142(H) 60 - 115 mg/dL [facility] EXT Albumin 4.0 3.3 - 5.0 g/dL [facility] EXT AST 25 12 - 35 U/L [facility] EXT ALT 21 4 - 50 U/L [facility] 10/04/2024 10:2 8 AM CDT Narrative [facility] - 10/04/2024 3:15 PM CDT External results verified in Extract by Tamika Christina on 10/04/2024 at 03:13 PM. us Ordering Provider External Trish LAB BLOOD ADD-ON Final Result Performing Organization Address [facility]/ZIP Co de Phone Number [facility] [address] [place], [place] [address] [phone] documented in this encounter Visit Diagnoses Not on filedocumented in this encounter
[2024-10-19 15:28] VITALS: BP 137/72; PULSE 103; RESP 16; TEMP 37.3; O2SAT 97; BMI 25.2
--- NOTE | 2024-10-19 15:37 | CRLHL7_ITS ---
For Patients: As a result of the Century Cures Act, medical imaging exams and procedure reports are released immediately into your electronic medical record. You may view this report before your referring provider. If you have questions, please contact your health care provider. Indication: CP. SOB. Technique: CT angiogram of the chest was performed for evaluation of pulmonary embolism. 95 mL of Isovue 370 intravenous contrast was administered. Comparison: None. Findings: CARDIOVASCULAR: Diagnostic quality: Contrast opacification of the pulmonary arterial circulation is adequate for assessment of pulmonary embolism. Study is not significantly limited by respiratory motion artifact. Pulmonary arteries: No filling defects to suggest pulmonary embolism. Not enlarged. Heart: No interventricular septal deviation. Normal in size. No significant coronary artery calcification. No significant valvular calcification. Pericardium: No pericardial effusion. Thoracic aorta: No significant abnormality. Normal cervical branching. REMAINING CHEST: Medical devices: None. Thyroid: Normal. Lymph nodes: No supraclavicular, axillary, mediastinal, or hilar lymphadenopathy. Other mediastinal structures: No significant abnormality. Lung parenchyma: No significant abnormality. Airways: Minimal bronchial wall thickening. Pleura: No significant abnormality. Chest wall: Mild bilateral gynecomastia. Upper abdomen: No significant abnormality. Musculoskeletal: Mild degenerative changes of the visualized spine. Impression: 1. No acute pulmonary embolism. 2. Minimal bronchial wall thickening may represent airways infection or inflammation. Please note that all CT scans at this facility use dose modulation, iterative reconstruction, and/or weight-based dosing when appropriate to reduce radiation dose to as low as reasonably achievable. Dictated by Leonardo Calles MD @ 10/19/2024 4:40:14 PM (Electronically Signed)
--- NOTE | 2024-10-19 15:40 | ED.GENADULT ---
HPI - General Adult General Date Seen: 10/19/24 Chief complaint: Shortness of Breath/Dyspnea Stated complaint: SOB, rule out PE Time Seen by Provider: 10/19/24 15:36 History of Present Illness HPI narrative: This is a 54-year-old male who is referred to the ER today from the clinic (was seeing Dr. Guillermo, nephrology) for evaluation of left chest pain and difficulty breathing. He has a past history of IgA nephropathy with mild renal insufficiency but so far an is not close to getting kidney transplant. He also has history of dyslipidemia on atorvastatin. His utilization reviewer sent him here for evaluation and to get a CT scan- Concern is for possible PE. The patient has been experiencing some pain in his midthoracic back that mostly hurts when he breathes in and out. It has been there for about a month. It is not getting better or worse. No other associated symptoms. No anterior chest pain. No abdominal pain. No flank pain. He he has not had a fever. No cough. No known injury. No rash. No bruising. He went to the clinic today as part of his regular 6 month checkup for his IgA nephropathy and when he mentioned his symptoms to his utilization reviewer, his utilization reviewer was concern about possible PE so sent him here. Concern was based partly on the nephrologists personal history of that diagnosis. The patient does not have any other risk factors. No recent travel or immobilization. No recent surgeries save for a kidney biopsy. He has no history of DVT or PE. He has not had any symptoms of DVT or any leg swelling lately. No hemoptysis. Related Data Home Medications ?Medication ?Instructions ?Recorded ?Confirmed aspirin 81 mg tablet,delayed 81 mg PO QDAY 09/30/24 10/19/24 release (Adult Low Dose Aspirin) Previous Rx's ?Medication ?Instructions ?Recorded syringe (disposable) 1 mL (BD #100 ea 06/24/22 Luer-Dwight Syringe) mometasone 50 mcg/actuation nasal 2 spray intranasal QDAY PRN nasal 04/30/23 spray congestion #17 grams triamcinolone acetonide 0.1 % 1 applic topical BID PRN eczema 04/30/23 topical cream #30 grams needle (disp) 18 G 18 gauge x 1 #100 ea 10/28/2302/11 (BD Regular Bevel Stringer) atorvastatin 40 mg tablet 40 mg PO QPM #90 tabs 04/28/24 dapagliflozin propanediol 10 mg 10 mg PO QDAY #90 tabs 04/28/24 tablet (Farxiga) lisinopril 20 mg tablet 20 mg PO QDAY #90 tabs 04/28/24 sildenafil 100 mg tablet 100 mg PO QDAY PRN sexual activity 04/28/24 #18 tabs testosterone cypionate 200 mg/mL 200 mg IM Q2W #6 mL 07/01/24 intramuscular oil (Depo-Testosterone) cyclobenzaprine 10 mg tablet 10 mg PO .hs PRN muscle spasm #30 09/30/24 tabs needle (disp) 22 G 22 gauge x 1 #100 ea 10/07/24 1/2 Allergies Allergy/AdvReac Type Severity Reaction Status Date / Time No Known Allergies Allergy Verified 10/19/24 14:31 [facility] Medical History (Updated 10/19/24 @ 17:01 by Austin Rain MD) Viral wart on finger ?B07.9 - Viral wart, unspecified (ICD-10) Hypertension ?I10 - Essential (primary) hypertension (ICD-10) Atopic dermatitis ?L20.9 - Atopic dermatitis, unspecified (ICD-10) Tachycardia ?R00.0 - Tachycardia, unspecified (ICD-10) Tubular adenoma of colon ?D12.6 - Benign neoplasm of colon, unspecified (ICD-10) Erectile dysfunction ?N52.9 - Male erectile dysfunction, unspecified (ICD-10) Hyperlipidemia ?E78.5 - Hyperlipidemia, unspecified (ICD-10) Screening for prostate cancer ?Z12.5 - Encounter for screening for malignant neoplasm of prostate (ICD-10) History of insomnia ?Z87.898 - Personal history of other specified conditions (ICD-10) History of hypertension ?Z86.79 - Personal history of other diseases of the circulatory system (ICD-10) History of hyperlipidemia ?Z86.39 - Personal history of other endocrine, nutritional and metabolic disease (ICD-10) History of fatigue ?Z87.898 - Personal history of other specified conditions (ICD-10) Family History (Updated 09/04/21 @ 08:41 by Oj Vargas) Daughter Bipolar disorder Father Diabetes Mother Diabetes Social History (Updated 04/28/24 @ 16:26 by Tara Anguiano MD) Narrative: never smoker, rare etoh, 2 daughters daughter juan carlos grandson lives with them Smoking Status: Never smoker Exam Narrative: Exam Narrative: Constitutional: Appears well-developed and well-nourished. Alert. Conversant. Non toxic. HENT: Head: Atraumatic. Nose: Nose normal. Mouth/Throat: Oral mucosa is clear and moist. no trismus. Pharynx normal. Tonsils symmetric. No tonsillar enlargement, erythema, or exudate. Eyes: Conjunctivae normal. EOM normal. Pupils equal, round, and reactive to light. No scleral icterus. Neck: Normal range of motion. Neck supple. No tracheal deviation present. Cardiovascular: Normal rate, regular rhythm. No gallop. No friction rub. No murmur heard. Symmetric radial artery pulses Pulmonary/Chest: Effort normal. No stridor. No respiratory distress. No wheezes. No rales. No rhonchi . No tenderness. Abdominal: Soft. Bowel sounds normal. No distension. No mass. No tenderness. No rebound. No guarding. Musculoskeletal: No tenderness over the thoracic or lumbar spines. No bruising. No redness. No rash. RUE: Normal range of motion. No tenderness. No deformity LUE: Normal range of motion. No tenderness. No deformity RLE: Normal range of motion. No edema. No tenderness. No deformity LLE: Normal range of motion. No edema. No tenderness. No deformity Neurological: Alert and oriented to person, place, and time. Normal strength. CN II-VII intact. No sensory deficit. GCS eye subscore is 4. GCS verbal subscore is 5. GCS motor subscore is 6. Normal coordination Skin: Skin is warm and dry. No rash noted. No pallor. Normal capillary refill. Psychiatric: Normal mood. Normal affect. Const: Vital Signs, click to edit/add: Vital Signs - 24 hr 10/19/24 15:28 Temperature 99.1 F Pulse Rate [Pulse Oximeter] 103 H Respiratory Rate 16 Blood Pressure [Ri ght Upper Arm] 137/72 Pulse Oximetry 97 Oxygen Delivery Me thod Room Air Course Vital Signs Vital signs: Initial Vital Signs Temperature 99.1 F 10/19/24 15:28 Temperature Source Temporal Artery Scan 10/19/24 15:28 Pulse Rate 103 H 10/19/24 15:28 Respiratory Rate 16 10/19/24 15:28 Blood Pressure 137/72 10/19/24 15:28 Blood Pressure Mean 93 10/19/24 15:28 Blood Pressure Position Sitting 10/19/24 15:28 Pulse Oximetry 97 10/19/24 15:28 Oxygen Delivery Method Room Air 10/19/24 15:28 Vital Signs Temperature 99.1 F 10/19/24 15:28 Pulse Rate 103 H 10/19/24 15:28 Respiratory Rate 16 10/19/24 15:28 Blood Pressure 137/72 10/19/24 15:28 Pulse Oximetry 97 10/19/24 15:28 Oxygen Delivery Method Room Air 10/19/24 15:28 Temperature 99.1 F 10/19/24 15:28 Pulse Rate 103 H 10/19/24 15:28 Respiratory Rate 16 10/19/24 15:28 Blood Pressure 137/72 10/19/24 15:28 Pulse Oximetry 97 10/19/24 15:28 Oxygen Delivery Method Room Air 10/19/24 15:28 Medical Decision Making MDM Narrative Medical decision making narrative: This patient presents to the ER today for evaluation of pain in the back of his thorax it has been there for about a month.. Differential was broad. No evidence of palpitations, syncope or other cardiac dysrhythmia. We considered possible ACS, however workup with EKG and troponin is negative. HEART score is 2. Given time since onset of symptoms, I do not think the patient needs to be admitted for further sets of enzymes. EKG shows no evidence for pericarditis. Clinical presentation not suggestive of myocarditis. Nephrology was concerned about PE for this patient. We did send the patient for CT PA. Fortunately is negative for any sign of PE. No other acute abnormality such as pneumonia, pneumothorax, pulmonary edema, pleural effusion, rib fractures. Bony thorax and T-spine is normal. Mediastinum is normal on the CT. Doubt acute ER dissection since the patient has been having these symptoms for a month. The patient has no ripping or tearing pain and has symmetric pulses on exam, no other acute neuro findings. Risk of radiation and contrast exposure would outweigh the benefit of repeat CT for CT angiogram. No wheezing or bronchospasm to suggest COPD/asthma. There is note of melena ill the peribronchial thickening noted on the CT scan which could suggest possible infection. No signs of chest wall cellulitis, shingles, injury. With reasonable clinical confidence, I think the patient is safe for outpatient follow up. Discussed return precautions. Questions answered. Patient voices comfort with the plan. Patient is agreeable to the plan for discharge and is pleased with his normal CT. He will stay hydrated tonight. Precautions for return to the ER reviewed. Lab Data Labs: Lab Results 10/19/24 10/19/24 Range/Units 15:37 15:38 WBC 7.75 (4.50-11.00) K/uL RBC 5.34 (4.30-5.90) m/uL Hgb 16.2 (13.5-17.5) gm/dL Hct 48.8 (37.0-53.0) % MCV 91 (80-100) fL MCH 30 (26-34) pg MCHC 33 (32-36) gm/dL RDW Coeff of Carol 12.5 (11.5-15.5) % Plt Count 157 (140-440) K/uL Neut % (Auto) 72.6 H (42.0-72.0) % Lymph % (Auto) 20.3 (20-44) % [place] % (Auto) 6.2 (0.0-11.0) % Eos % (Auto) 0.5 (0.0-7.0) % Baso % (Auto) 0.3 (0.0-3.0) % Neut # (Auto) 5.60 (1.7-7.0) K/uL Lymph # (Auto) 1.57 (0.90-2.90) K/uL [place] # (Auto) 0.50 (0.00-0.90) K/UL Eos # (Auto) 0.04 (0.00-0.50) K/uL Baso # (Auto) 0.02 (0.00-0.30) K/uL Abs Immat Gran (auto) 0.01 (0.00-0.30) K/uL Imm/Tot Granulo (auto) 0.1 % Sodium 139 (135-149) mmol/L Potassium 4.2 (3.6-5.1) mmol/L Chloride 102 (96-114) mmol/L Carbon Dioxide 29 (20-32) mmol/L Anion Gap 8 (7-15) mEq/L BUN 27 (7-30) mg/dL Creatinine 1.7 H (0.5-1.5) mg/dL Estimated Creat Clear 52.29 Estimated GFR 47 ml/min Glucose 112 (60-115) mg/dL Calcium 9.5 (8.4-10.6) mg/dL Lipase 77 (23-300) U/L POC Troponin I 0.00 L (0.01-0.04) ng/ml Imaging Data CT scan - chest: Attestation: I have reviewed the pertinent imaging results. Radiologist's impression: Impression: 1. No acute pulmonary embolism. 2. Minimal bronchial wall thickening may represent airways infection or inflammation. ECG Data Attestation: I personally reviewed and interpreted this ECG as follows: Interpretation: Normal sinus rhythm. Rate 90 AR interval 134 Normal QRS axis No ST segment elevation or depression QTC 340, QTC 415 Discharge Plan Discharge Clinical Impression: Back pain Patient Disposition: Home, Self-Care Condition: Stable Instructions: Back Pain (ED) Additional Instructions: As we discussed, so far your workup looks reassuring. No sign of blood clot or other problems with her lungs that would explain your back pain. Please follow-up with your regular doctor for recheck within the next few days. As your utilization reviewer suggest, it is reasonable to stop atorvastatin to see if your back pain gets better. Monitor symptoms carefully if you have worsening pain, changing location of your pain, numbness or weakness in your legs or arms, or any other worsening symptoms please come back to the ER immediately. Prescriptions: No Action mometasone 50 mcg/actuation spray,non-aerosol 2 spray intranasal QDAY PRN (Reason: nasal congestion) Qty: 17 10RF Rx Instructions: administer into each nostril triamcinolone acetonide 0.1 % cream 1 applic topical BID PRN (Reason: eczema) Qty: 30 11RF (DME) BD Regular Bevel Stringer 18 gauge x 1 1/2 needle See Rx Instructions .Route Qty: 100 3RF Rx Instructions: use one needle every 2 weeks to draw testosterone from vial Farxiga 10 mg tablet 10 mg PO QDAY Qty: 90 3RF lisinopril 20 mg tablet 20 mg PO QDAY Qty: 90 3RF atorvastatin 40 mg tablet 40 mg PO QPM Qty: 90 3RF sildenafil 100 mg tablet 100 mg PO QDAY MDD 100mg PRN (Reason: sexual activity) Qty: 18 9RF Rx Instructions: administer 30 minutes to 4 hours before activity aspirin [Adult Low Dose Aspirin] 81 mg tablet,delayed release (DR/EC) 81 mg PO QDAY cyclobenzaprine 10 mg tablet 10 mg PO .hs PRN (Reason: muscle spasm) Qty: 30 0RF (DME) BD Luer-Dwight Syringe 1 mL syringe See Rx Instructions .Route Qty: 100 0RF Rx Instructions: every two weeks for testosterone therapy testosterone cypionate [Depo-Testosterone] 200 mg/mL oil 200 mg IM Q2W Qty: 6 3RF (DME) needle (disp) 22 G 22 gauge x 1 1/2 needle See Rx Instructions .Route Qty: 100 1RF Rx Instructions: use to inject testosterone IM every 2 weeks Follow Up/Referrals: Lonnie Murillo MD [Primary Care Provider, Family Practice] Stand Alone Forms: MyHealth Info Instructions
[2024-10-19 16:05] LABS: Hematocrit* 48.8 % (37.0-53.0); Hemoglobin* 16.2 gm/dL (13.5-17.5); Immature Granulocytes Abs Auto 0.01 K/uL (0.00-0.30); Immature Granulocytes Pct Auto 0.1 %; Lymphocytes Absolute Auto 1.57 K/uL (0.90-2.90); Mean Corpuscular HGB Conc 33 gm/dL (32-36); Mean Corpuscular Hemoglobin 30 pg (26-34); Mean Corpuscular Volume 91 fL (80-100); RDW Coefficient of Variation % 12.5 % (11.5-15.5); Red Blood Count* 5.34 m/uL (4.30-5.90); White Blood Count* 7.75 K/uL (4.50-11.00)
[2024-10-19 16:07] LABS: Chloride* 102 mmol/L (96-114); Potassium* 4.2 mmol/L (3.6-5.1); Sodium* 139 mmol/L (135-149)
[2024-10-19 16:10] LABS: Anion Gap 8 mEq/L (7-15); Blood Urea Nitrogen* 27 mg/dL (7-30); Calcium* 9.5 mg/dL (8.4-10.6); Carbon Dioxide* 29 mmol/L (20-32); Creatinine* 1.7 mg/dL (0.5-1.5); Est. Creatinine Clearance* 52.29; Estimated Glomerular Filt Rate 47 ml/min; Glucose* 112 mg/dL (60-115)
[2024-10-19 16:15] LABS: Slide Review Reflex No
[2024-10-19 16:18] LABS: Troponin, Point-of-Care* 0.00 ng/ml (0.01-0.04)
--- OUTSIDE RECORDS SUMMARY | 2024-10-19 16:30 | XMS_ITS | Encounter Summary ---
Author Organization [facility] Address [address] [place] [id number] Care Team Providers Care District Court Reporter Name Role Phone Unavailable Primary Care Provider Unavailabl e Reason for Visit * Appointment Request (Routine) - Closed Specialty Diagnoses / Procedures Referred By Leyda quinn Referred To Contact Nephrology and Hypertension Referral ID Status Reason Start Date Expiration Date Visits Re quested Visits Authorized [id number] Closed 09/17/2024 12/18/2025 1 1 Encounter Details Date Type Department Care Team (Latest Contact Info) Description 10/19/2024 4:30 PM CDT External Outreach Division of Nephrology and Hypertension in [place], [place] [address] [place] [address] Ernesto Guillermo Jr., D.O. [address] [place] [address] Chronic Kidney Disease (CKD), Stage 3a Glomerular Filtration Rate (GFR) 45 To 59 (HCC) (Primary Dx); Glomerulonephritis Immunoglobulin A (IgA Nephropathy); Diabetes Mellitus Type 2 (HCC); Hypertensive Chronic Kidney Disease With Stage 1 Through Stage 4 Chronic Kidney Disease, Or Unspecified Chronic Kidney Disease; Hyperlipidemia Mixed; Hypogonadism Male Social History Tobacco Use Types Packs/Day Years Used Date Smoking Tobacco: Never Assessed Sex and Gender Information Value Date Recorded Sex Assigned at Not on file Legal Sex Male 12:13 PM [employer] Gender Identity Not on file Sexual Orientation [...] Mass Index 25.06 10/19/2024 2:41 PM CDT documented in this encounter Plan of Treatment Not on file documented as of this encounter Visit Diagnoses Diagnosis Chronic Kidney Disease (CKD), Stage 3a Glomerular Filtration Rate (GFR) 45 To 59 (HCC)- Primary Glomerulonephritis Immunoglobulin A (IgA Nephropathy) Diabetes Mellitus Type 2 (HCC) Hypertensive Chronic Kidney Disease With Stage 1 Through Stage 4 Chronic Kidney Disease, Or Unspecified Chronic Kidney Disease Hyperlipidemia Mixed Hypogonadism Male documented in this encounter
[2024-10-19 16:45] VITALS: PULSE 93; RESP 17; O2SAT 99
[2024-10-19 17:00] VITALS: PULSE 96; RESP 22; O2SAT 99
== END 2024-10-19 17:09 | disposition home or self-care (01) ==
PROVIDERS: Emergency Provider Emergency Medicine; PCP Family Medicine
DX: M54.9 Dorsalgia, unspecified (principal)
CPT/HCPCS: 36415; 71275; 80048; 83690; 84484; 85025; 93005; 99283; 99284; Q9967

== ENCOUNTER 2024-11-15 15:38 | Outpatient (CLI) | payer BC, SELFPAY | END 2024-11-15 15:39 | disposition home or self-care (01) | LOC: NFLDREF 11-18 08:48 | PROVIDERS: PCP Family Medicine; Referring Provider Family Medicine; Visit Provider Internal Medicine Nephrology | DX: E11.22 Type 2 diabetes mellitus with diabetic chronic kidney disease (principal); I12.9 Hypertensive chronic kidney disease with stage 1 through stage 4 chronic kidney disease, or unspecified chronic kidney disease; N18.32 Chronic kidney disease, stage 3b; M54.50 Low back pain, unspecified | CPT/HCPCS: 80061; 80069; 82043; 82085; 82397; 82550; 82570; 84550 ==

== ENCOUNTER 2024-12-06 16:24 | Outpatient (CLI) | payer BC, SELFPAY | END 2024-12-06 16:25 | disposition home or self-care (01) | LOC: NFLDREF 12-08 19:15 | PROVIDERS: PCP Family Medicine; Referring Provider Family Medicine; Visit Provider Internal Medicine Nephrology | DX: E11.22 Type 2 diabetes mellitus with diabetic chronic kidney disease (principal); I12.9 Hypertensive chronic kidney disease with stage 1 through stage 4 chronic kidney disease, or unspecified chronic kidney disease; N18.32 Chronic kidney disease, stage 3b | CPT/HCPCS: 80076; 86140 ==

== ENCOUNTER 2024-12-15 16:02 | Outpatient (CLI) | payer BC, SELFPAY ==
--- NOTE | 2024-12-15 16:30 | CRLHL7_ITS ---
For Patients: As a result of the Century Cures Act, medical imaging exams and procedure reports are released immediately into your electronic medical record. You may view this report before your referring provider. If you have questions, please contact your health care provider. INDICATION: Pain in thoracic pain TECHNIQUE: 2-view thoracic spine. COMPARISON: CT chest 10/19/2024 FINDINGS: The thoracic vertebrae are anatomically aligned. Mild discogenic spurring lower thoracic spine. There is no evidence of a fracture or intrinsic bone lesion. The posterior ribs and paraspinal soft tissues appear normal. IMPRESSION: No thoracic spine fracture. Mild degenerative disc disease. Dictated by Miguel Khalil MD @ 12/16/2024 8:11:43 AM (Electronically Signed)
== END 2024-12-15 16:03 | disposition home or self-care (01) ==
LOC: RAD 16:02
PROVIDERS: PCP Family Medicine; Visit Provider Internal Medicine Nephrology
DX: M54.6 Pain in thoracic spine (principal)
CPT/HCPCS: 72070